=== PATIENT | male | born 1980 | race Two or more races ===

== ENCOUNTER 2018-06-17 20:13 | Inpatient (IN) | payer SELFPAY ==
[~2018-06-17] VITALS: Ht 177.8 cm; Wt 105.7 kg
--- NOTE | 2018-06-17 21:07 | PHYS DOC ---
Past Medical History Past Medical History: No Pertinent History Past Surgical History: No Surgical History Alcohol Use: Occasionally Drug Use: None Adult General Chief Complaint Chief Complaint: NAUSEA/VOMITING/DIARRHA HPI HPI Patient is a 37 year old male who presents with vomiting, diarrhea, chills, dizziness, headache 2 days. Patient hasn't ate or drank in over 24 hours. He denies a cough, shortness of air, chest pain, LOC, numbness, tingling, any weaknesses. Patient states he does have body aches and headache. Rates pain a 10 out of 10. He took Pepto-Bismol this morning and ibuprofen last at 6 PM. Skin is pink warm and dry. His abdomen is soft and tender in the epigastric and in the lower abdomen. Patient denies any urinary symptoms. Patient denies any blood in his vomit or his stool. Patient states he has not been around any dialysis and sick. Patient's heart rate is 120, 147/71, 24 respirations, 96% on room air. Review of Systems Review of Systems Constitutional: Fever or chills [] Eyes: Denies change in visual acuity, redness, or eye pain [] HENT: Denies nasal congestion or sore throat [] Respiratory: Denies cough or shortness of breath [] Cardiovascular: No additional information not addressed in HPI [] GI: Abdominal cramping pain, nausea, vomiting. Denies bloody stools. Diarrhea [] : Denies dysuria or hematuria [] Musculoskeletal: Generalized body aches. Denies back pain or joint pain [] Integument: Denies rash or skin lesions [] Neurologic: Headache and dizziness. Denies focal weakness or sensory changes [] Endocrine: Denies polyuria or polydipsia [] All other systems were reviewed and found to be within normal limits, except as documented in this note. Current Medications Current Medications Current Medications Medications (Trade) Dose Ordered Sig/Bebeto Start Time Stop Time Status Last Admin Dose Admin Acetaminophen (Tylenol) 650 mg PRN Q4HRS PRN 06/17/18 22:30 06/18/18 22:29 Famotidine (Pepcid Vial) 20 mg 1X ONCE 06/17/18 21:30 06/17/18 21:31 DC 06/17/18 21:47 20 MG Fentanyl Citrate (Fentanyl 2ml Vial) 50 mcg PRN Q2HR PRN 06/17/18 22:30 06/18/18 22:29 Info (CONTRAST GIVEN -- Rx MONITORING) 1 each PRN DAILY PRN 06/17/18 21:30 06/19/18 21:29 Iohexol (Omnipaque 300 Mg/ml) 75 ml 1X ONCE 06/17/18 22:00 06/17/18 22:01 DC 06/17/18 21:54 60 ML Ketorolac Tromethamine (Toradol 30mg Vial) 30 mg 1X ONCE 06/17/18 21:30 06/17/18 21:31 DC 06/17/18 21:46 30 MG Ondansetron HCl (Zofran) 4 mg PRN Q8HRS PRN 06/17/18 22:30 06/18/18 22:29 Sodium Chloride 1,000 ml @ 80 mls/hr [id number] 06/17/18 23:00 06/18/18 22:59 Allergies Allergies Allergies Coded Allergies Type Severity Reaction Last Updated Verified No Known Drug Allergies 06/17/18 No Physical Exam Physical Exam Constitutional: Well developed, well nourished, no acute distress, non-toxic appearance. [] HENT: Normocephalic, atraumatic, bilateral external ears normal, oropharynx moist, no oral exudates, nose normal. [] Eyes: PERRLA, EOMI, conjunctiva normal, no discharge. [] Neck: Normal range of motion, no tenderness, supple, no stridor. [] Cardiovascular: Heart rate regular rhythm, Tachy, no murmur [] Lungs & Thorax: Bilateral breath sounds clear to auscultation [] Abdomen: Bowel sounds normal, soft, Mid epigastric and low mid abdomen tenderness, no masses, no pulsatile masses. [] Skin: Warm, dry, no erythema, no rash. [] Back: No tenderness, no CVA tenderness. [] Extremities: No tenderness, no cyanosis, no clubbing, ROM intact, no edema. [] Neurologic: Alert and oriented X 3, normal motor function, normal sensory function, no focal deficits noted. [] Psychologic: Affect normal, judgement normal, mood normal. [] Current Patient Data Vital Signs Vital Signs Date Time Temp Pulse Resp B/P (MAP) Pulse Ox O2 Delivery O2 Flow Rate FiO2 06/17/18 21:00 103 18 154/77 (102) 96 Room Air 06/17/18 20:31 98.6 98.6 Lab Values Laboratory Tests Test 06/17/18 21:05 06/17/18 21:15 White Blood Count 20.1 x10^3/uL (4.0-11.0) H Red Blood Count 5.64 x10^6/uL (4.30-5.70) Hemoglobin 17.0 g/dL (13.0-17.5) Hematocrit 48.8 % (39.0-53.0) Mean Corpuscular Volume 87 fL (79-100) Mean Corpuscular Hemoglobin 30 pg (25-35) Mean Corpuscular Hemoglobin Concent 35 g/dL (31-37) Red Cell Distribution Width 14.2 % (11.5-14.5) Platelet Count 253 x10^3/uL (140-400) Neutrophils (%) (Auto) 93 % (31-73) H Lymphocytes (%) (Auto) 2 % (24-48) L Monocytes (%) (Auto) 4 % (0-9) Eosinophils (%) (Auto) 0 % (0-3) Basophils (%) (Auto) 1 % (0-3) Neutrophils # (Auto) 18.7 x10^3uL (1.8-7.7) H Lymphocytes # (Auto) 0.4 x10^3/uL (1.0-4.8) L Monocytes # (Auto) 0.8 x10^3/uL (0.0-1.1) Eosinophils # (Auto) 0.0 x10^3/uL (0.0-0.7) Basophils # (Auto) 0.1 x10^3/uL (0.0-0.2) Segmented Neutrophils % 62 % (35-66) Band Neutrophils % 28 % (0-9) H Lymphocytes % 5 % (24-48) L Atypical Lymphocytes % (Manual) 1 % (0-0) H Monocytes % 3 % (0-10) Basophils % 1 % (0-3) Platelet Estimate Adequate (ADEQUATE) Sodium Level 137 mmol/L (136-145) Potassium Level 3.8 mmol/L (3.5-5.1) Chloride Level 98 mmol/L (98-107) Carbon Dioxide Level 24 mmol/L (21-32) Anion Gap 15 (6-14) H Blood Urea Nitrogen 18 mg/dL (8-26) Creatinine 1.5 mg/dL (0.7-1.3) H Estimated GFR (Cockcroft-Gault) 52.1 BUN/Creatinine Ratio 12 (6-20) Glucose Level 153 mg/dL (70-99) H Calcium Level 9.4 mg/dL (8.5-10.1) Total Bilirubin 1.1 mg/dL (0.2-1.0) H Aspartate Amino Transferase (AST) 21 U/L (15-37) Alanine Aminotransferase (ALT) 45 U/L (16-63) Alkaline Phosphatase 77 U/L (46-116) Total Protein 9.0 g/dL (6.4-8.2) H Albumin 4.3 g/dL (3.4-5.0) Albumin/Globulin Ratio 0.9 (1.0-1.7) L Lipase 112 U/L (73-393) Urine Collection Type Unknown Urine Color Debo Urine Clarity Clear Urine pH 5.0 Urine Specific [place] >=1.030 Urine Protein 30 mg/dL (NEG-TRACE) Urine Glucose (UA) Negative mg/dL (NEG) Urine Ketones (Stick) Trace mg/dL (NEG) Urine Blood Moderate (NEG) Urine Nitrite Negative (NEG) Urine Bilirubin Negative (NEG) Urine Urobilinogen Dipstick 0.2 mg/dL (0.2 mg/dL) Urine Leukocyte Esterase Negative (NEG) Urine RBC Occ /HPF (0-2) Urine WBC Occ /HPF (0-4) Urine Squamous Epithelial Cells Occ /LPF Urine Bacteria 0 /HPF (0-FEW) Urine Hyaline Casts Few /HPF Urine Mucus Marked /LPF Urine Opiates Screen Neg (NEG) Urine Methadone Screen Neg (NEG) Urine Barbiturates Neg (NEG) Urine Phencyclidine Screen Neg (NEG) Urine Amphetamine/Methamphetamine Neg (NEG) Urine Benzodiazepines Screen Neg (NEG) Urine Cocaine Screen Neg (NEG) Urine Cannabinoids Screen Neg (NEG) Urine Ethyl Alcohol Neg (NEG) Influenza Type A Antigen Negative (NEGATIVE) Influenza Type B Antigen Negative (NEGATIVE) Laboratory Tests 06/17/18 21:05 Laboratory Tests 06/17/18 21:05 EKG EKG [] Radiology/Procedures Radiology/Procedures CT ABD PELV Impressions: [facility] [address] [place] [address] IMAGING REPORT Signed PATIENT: NICOLE MENDIETA ACCOUNT: [id number] : 1980 LOCATION: ER AGE: 37 SEX: M EXAM STATUS: REG ER ORD. PHYSICIAN: RAFAEL SIDDIQUI APRN REASON: abdominal pain, diarrhea PROCEDURE: CT ABD PELV W/ IV CONTRST ONLY CT scan of the abdomen and pelvis with contrast 06/17/2018 CLINICAL HISTORY: Abdominal pain and diarrhea. TECHNIQUE: After the intravenous administration of 60 cc of Omnipaque 300, contiguous, 5 mm axial sections were obtained through the abdomen and pelvis. One or more of the following individualized dose reduction techniques were utilized for this study: 1. Automated exposure control. 2. Adjustment of the mA and/or kV according to patient size. 3. Use of iterative reconstruction technique. FINDINGS: Images through the lung bases demonstrate minimal dependent subsegmental atelectasis bilaterally. The liver parenchyma has a decreased attenuation consistent with mild fatty infiltration. The spleen, pancreas, adrenal glands and kidneys are within normal limits. The abdominal aorta tapers normally. The gallbladder is well-distended. No free fluid or free air is seen within the abdomen. There is no evidence of bowel obstruction. The appendix is well-visualized and is within normal limits. Images through pelvis demonstrate the urinary bladder to be contracted. No free fluid is seen. Punctate calcification is seen within the left pelvis consistent with a phlebolith. Minimal S-shaped curvature of the thoracolumbar spine is seen. IMPRESSION: No acute abnormality is seen. Electronically signed by: Amari Garcia MD (06/17/2018 9:59 PM) [facility] DICTATED and SIGNED BY: AMARI GARCIA MD DATE: 06/17/180 Course & Med Decision Making Course & Med Decision Making Patient is a 37 year old male who presents with vomiting, diarrhea, chills, dizziness, headache 2 days. Patient hasn't ate or drank in over 24 hours. He denies a cough, shortness of air, chest pain, LOC, numbness, tingling, any weaknesses. Patient states he does have body aches and headache. Rates pain a 10 out of 10. He took Pepto-Bismol this morning and ibuprofen last at 6 PM. Skin is pink warm and dry. His abdomen is soft and tender in the epigastric and in the lower abdomen. Patient denies any urinary symptoms. Patient denies any blood in his vomit or his stool. Patient states he has not been around any dialysis and sick. Patient's heart rate is 120, 147/71, 24 respirations, 96% on room air. Clear to auscultation in all lobes. Heart rate is irregular and without murmur. Patient has no swelling in his extremities. He has no rashes or lesions. PERRLA. Neurologically intact. Alert and oriented. Patient states he has no known drug allergies, takes no medications daily, has no medical history , and has never had surgery. Patient denies any back pain or CVA tenderness. Patient is stable and in no distress. Patient has a white count of 20 and a left shift. Patient's urine is without infection. His CT abdomen pelvis shows no acute findings. Flu is negative. I have ordered another bolus of normal saline, blood cultures, lactic acid, Pro calcitonin. Patient does meet Sirs criteria. Patient will be admitted for Sirs. Patient's heart rate is now down to 103, 1 5477, 18 respirations, 96% on room air. 2234: Spoken to Dr. Murdock on the patient is admitted. Dr. Murdock had me order a dose of Flagyl and Cipro for the patient. Patient is stable and in no distress. Dragon Disclaimer Dragon Disclaimer This electronic medical record was generated, in whole or in part, using a voice recognition dictation system. Departure Departure Impression: Primary Impression: SIRS (systemic inflammatory response syndrome) Disposition: ADMITTED INPATIENT Admitting Physician: Patricia Murdock Condition: STABLE Referrals: NO PCP (PCP) RAFAEL SIDDIQUI APRN Jun 17, 2018 21:07
[2018-06-17 21:14] LABS: BASO # 0.1 x10^3/uL (0.0-0.2); BASO % 1 % (0-3); EOS % 0 % (0-3); HEMATOCRIT 48.8 % (39.0-53.0); LYMPH # 0.4 x10^3/uL (1.0-4.8); LYMPH % 2 % (24-48); MEAN CORPUSCULAR HEMOGLOBIN 30 pg (25-35); MEAN CORPUSCULAR HGB CONC 35 g/dL (31-37); MEAN CORPUSCULAR VOLUME 87 fL (79-100); MONO # 0.8 x10^3/uL (0.0-1.1); MONO % 4 % (0-9); NEUT # 18.7 x10^3uL (1.8-7.7); NEUT % 93 % (31-73); PLATELET COUNT 253 x10^3/uL (140-400); RED BLOOD COUNT 5.64 x10^6/uL (4.30-5.70); RED CELL DISTRIBUTION WIDTH 14.2 % (11.5-14.5); WHITE BLOOD COUNT 20.1 x10^3/uL (4.0-11.0)
[2018-06-17 21:25] LABS: CALCIUM 9.4 mg/dL (8.5-10.1); CREATININE 1.5 mg/dL (0.7-1.3); GFR 52.1; POTASSIUM 3.8 mmol/L (3.5-5.1)
[2018-06-17 21:29] LABS: BILIRUBIN,URINE NEGATIVE (NEG); CLARITY,URINE CLEAR; COLOR,URINE AMBER; NITRITE,URINE NEGATIVE (NEG); PROTEIN,URINE 30 mg/dL (NEG-TRACE); UROBILINOGEN,URINE 0.2 mg/dL (0.2 mg/dL)
[2018-06-17] MEDS ORDERED: KETOROLAC 30 MG/ML VIAL. IV ONE (21:30)
[2018-06-17] MEDS ORDERED: CONTRAST GIVEN. MC PRN (21:30)
[2018-06-17] MEDS ORDERED: IV NORMAL SALINE 1000ML BAG 1,000 ML IV ONE ×2 (21:30→22:30)
[2018-06-17] MEDS ORDERED: ONDANSETRON PF 4 MG/2 ML VIAL. IV ONE (21:30)
[2018-06-17] MEDS ORDERED: FAMOTIDINE 20 MG/2 ML VIAL IVP ONE (21:30)
[2018-06-17 21:31] LABS: ALBUMIN 4.3 g/dL (3.4-5.0); ALBUMIN/GLOBULIN RATIO 0.9 (1.0-1.7); TOTAL BILIRUBIN 1.1 mg/dL (0.2-1.0)
[2018-06-17 21:33] LABS: BACTERIA,URINE 0 /HPF (0-FEW); HYALINE CASTS, URINE FEW /HPF; RBC,URINE OCC /HPF (0-2); SQUAMOUS EPITHELIAL CELL,UR OCC /LPF; WBC,URINE OCC /HPF (0-4)
[2018-06-17 21:41] LABS: BARBITURATES NEG (NEG); BENZODIAZEPINES NEG (NEG); CANNABINOIDS NEG (NEG); COCAINE NEG (NEG); METHADONE NEG (NEG); OPIATES NEG (NEG); PHENCYCLIDINE NEG (NEG)
[2018-06-17 21:42] LABS: AMPHETAMINE/METHAMPHETAMINE NEG (NEG)
[2018-06-17 21:44] LABS: % ATYL 1 % (0-0); % BANDS 28 % (0-9); % BASOS 1 % (0-3); % LYMPHS 5 % (24-48); % MONOS 3 % (0-10); % SEGS 62 % (35-66); PLT ESTIMATE ADEQUATE (ADEQUATE)
[2018-06-17 21:58] LABS: INFLUENZA A PATIENT NEGATIVE (NEGATIVE); INFLUENZA B PATIENT NEGATIVE (NEGATIVE)
[2018-06-17] MEDS ORDERED: IOHEXOL 300 MG/ML 100ML VIAL. IV ONE (22:00)
--- NOTE | 2018-06-17 22:02 | RAD ---
CT scan of the abdomen and pelvis with contrast 06/17/2018 CLINICAL HISTORY: Abdominal pain and diarrhea. TECHNIQUE: After the intravenous administration of 60 cc of Omnipaque 300, contiguous, 5 mm axial sections were obtained through the abdomen and pelvis. One or more of the following individualized dose reduction techniques were utilized for this study: 1. Automated exposure control. 2. Adjustment of the mA and/or kV according to patient size. 3. Use of iterative reconstruction technique. FINDINGS: Images through the lung bases demonstrate minimal dependent subsegmental atelectasis bilaterally. The liver parenchyma has a decreased attenuation consistent with mild fatty infiltration. The spleen, pancreas, adrenal glands and kidneys are within normal limits. The abdominal aorta tapers normally. The gallbladder is well-distended. No free fluid or free air is seen within the abdomen. There is no evidence of bowel obstruction. The appendix is well-visualized and is within normal limits. Images through pelvis demonstrate the urinary bladder to be contracted. No free fluid is seen. Punctate calcification is seen within the left pelvis consistent with a phlebolith. Minimal S-shaped curvature of the thoracolumbar spine is seen. IMPRESSION: No acute abnormality is seen. Electronically signed by: Amari Garcia MD (06/17/2018 9:59 PM) [facility]
[2018-06-17] MEDS ORDERED: fentaNYL PF VIAL 100 MCG/2 ML VIAL IV PRN (22:30)
[2018-06-17] MEDS ORDERED: ONDANSETRON PF 4 MG/2 ML VIAL. IV PRN (22:30)
[2018-06-17] MEDS ORDERED: CIPROFLOXACIN 400MG PREMIX 200 ML IV ONE (23:00)
[2018-06-17 23:55] VITALS: BP 123/72
[2018-06-18] MEDS: IV NORMAL SALINE 1000ML BAG 1,000 ML IV SCH ×4 (00:11→20:41)
[2018-06-18] MEDS ORDERED: [UNRECOGNIZED DRUG - REMARK] (00:17)
--- NOTE | 2018-06-18 02:49 | RAD ---
CHEST PA LATERAL Technique: PA and lateral views of the chest were obtained. Clinical History: fever, elevated WBC Comparison: None. Findings: The heart and pulmonary vasculature appear within normal limits. The lungs are clear. The pleural margins are clear. Impression: No acute chest process is seen. Electronically signed by: Gino Iglesias III, MD (06/18/2018 2:45 AM) [id number]
[2018-06-18 03:00] VITALS: BP 123/65
[2018-06-18 07:00] VITALS: BP 133/70
[2018-06-18] MEDS: ACETAMINOPHEN 325 MG TABLET. PO PRN ×2 (08:19→15:24)
[2018-06-18 11:00] VITALS: BP 120/70
[2018-06-18] MEDS: PIPERACILLIN/TAZOBACTAM 3.375 GM in IV NORMAL SALINE 50ML 50 ML IV SCH ×2 (12:49→17:37)
[2018-06-18 13:02] LABS: FECAL OB PT POSITIVE (NEG)
[2018-06-18 15:00] VITALS: BP 142/83
[2018-06-18] MEDS ORDERED: DOCUSATE SODIUM 100 MG CAPSULE. PO PRN (15:45)
[2018-06-18] MEDS ORDERED: traMADol 50 MG TABLET PO PRN (15:45)
[2018-06-18] MEDS ORDERED: MORPHINE SULFATE 2 MG/ML VIAL. IV PRN (15:45)
[2018-06-18] MEDS ORDERED: ONDANSETRON PF 4 MG/2 ML VIAL. IV PRN (15:45)
[2018-06-18] MEDS ORDERED: ACETAMINOPHEN 325 MG TABLET. PO PRN (15:45)
--- NOTE | 2018-06-18 15:48 | PDOC1 ---
History and Physical Date of Admission Date of Admission 06/18/18 Identification/Chief Complaint Chief Complaint N/V, diarrhea Source Source: Chart review, Patient History of Present Illness History of Present Illness Patient is a 37 year old male who presents with vomiting, diarrhea x2 days. Pt speaks persian, little Upper Sorbian. He denies sick contact, recent travel history. Has N/V and watery diarrhea 15times x2ds. also has abd pain, diffuse, moderate, dull pain. whole body muscle pain. no cough, or sob. also had headache. has T 102.[address] ABD neg. wbc 20. Past Medical History Past Medical History none Past Surgical History Past Surgical History: No pertinent history Family History Family History: Hypertension Social History Smoke: No ALCOHOL: none Drugs: None Current Problem List Problem List Problems Medical Problems: (1) SIRS (systemic inflammatory response syndrome) Status: Acute Current Medications Current Medications Current Medications Medications (Trade) Dose Ordered Sig/Bebeto Start Time Stop Time Status Last Admin Dose Admin Acetaminophen (Tylenol) 650 mg PRN Q4HRS PRN 06/17/18 22:30 06/18/18 22:29 06/18/18 15:24 650 MG Ciprofloxacin/ Dextrose 200 ml @ 200 mls/hr 1X ONCE 06/17/18 23:00 06/18/18 12:07 DC 06/17/18 23:15 200 MLS/HR Famotidine (Pepcid Vial) 20 mg 1X ONCE 06/17/18 21:30 06/17/18 21:31 DC 06/17/18 21:47 20 MG Fentanyl Citrate (Fentanyl 2ml Vial) 50 mcg PRN Q2HR PRN 06/17/18 22:30 06/18/18 22:29 06/18/18 00:30 50 MCG Info (CONTRAST GIVEN -- Rx MONITORING) 1 each PRN DAILY PRN 06/17/18 21:30 06/19/18 21:29 Iohexol (Omnipaque 300 Mg/ml) 75 ml 1X ONCE 06/17/18 22:00 06/17/18 22:01 DC 06/17/18 21:54 60 ML Ketorolac Tromethamine (Toradol 30mg Vial) 30 mg 1X ONCE 06/17/18 21:30 06/17/18 21:31 DC 06/17/18 21:46 30 MG Metronidazole 100 ml @ 100 mls/hr 1X ONCE 06/17/18 23:00 06/18/18 12:07 DC 06/18/18 00:21 100 MLS/HR Ondansetron HCl (Zofran) 4 mg PRN Q8HRS PRN 06/17/18 22:30 06/18/18 22:29 06/18/18 12:48 4 MG Piperacillin Sod/ Tazobactam Sod 3.375 gm/Sodium Chloride 50 ml @ 100 mls/hr Q6HRS 06/18/18 12:30 06/18/18 12:49 100 MLS/HR Sodium Chloride 1,000 ml @ 80 mls/hr [id number] 06/17/18 23:00 06/18/18 22:59 06/18/18 15:24 80 MLS/HR Allergies Allergies Allergies Coded Allergies Type Severity Reaction Last Updated Verified No Known Drug Allergies 06/17/18 No ROS Review of System CONSTITUTIONAL: No fever or chills EYES: No recent changes SKIN: No rash or itching CARDIOVASCULAR: No chest pain, syncope, palpitations, or edema RESPIRATORY: No SOB or cough GASTROINTESTINAL: No nausea, vomiting or abdominal pain NEUROLOGICAL: No headaches or weakness ENDOCRINE: No cold or heat intolerance GENITOURINARY: No urgency or frequency of urination MUSCULOSKELETAL: No back pain or joint pain LYMPHATICS: No enlarged lymph nodes PSYCHIATRIC: No anxiety or depression Physical Exam Physical Exam GEN.: No apparent distress. Alert and oriented. HEENT: Head is normocephalic, atraumatic NECK: Supple. LUNGS: Clear to auscultation. HEART: RRR, S1, S2 present. Peripheral pulses intact ABDOMEN: Soft, Positive bowel sounds. mildly distended. diffuse moderate abd tenderness. EXTREMITIES: Without any cyanosis. NEUROLOGIC: Normal speech, normal tone PSYCHIATRIC: Normal affect, normal mood. SKIN: No ulcerations Vitals Vitals Vital Signs Date Time Temp Pulse Resp B/P (MAP) Pulse Ox O2 Delivery O2 Flow Rate FiO2 06/18/18 11:00 99.4 91 20 120/70 (87) 94 Room Air 99.4 Labs Labs Laboratory Tests Test 06/17/18 21:05 06/17/18 21:15 06/17/18 22:27 06/18/18 02:30 White Blood Count 20.1 x10^3/uL (4.0-11.0) Red Blood Count 5.64 x10^6/uL (4.30-5.70) Hemoglobin 17.0 g/dL (13.0-17.5) Hematocrit 48.8 % (39.0-53.0) Mean Corpuscular Volume 87 fL (79-100) Mean Corpuscular Hemoglobin 30 pg (25-35) Mean Corpuscular Hemoglobin Concent 35 g/dL (31-37) Red Cell Distribution Width 14.2 % (11.5-14.5) Platelet Count 253 x10^3/uL (140-400) Neutrophils (%) (Auto) 93 % (31-73) Lymphocytes (%) (Auto) 2 % (24-48) Monocytes (%) (Auto) 4 % (0-9) Eosinophils (%) (Auto) 0 % (0-3) Basophils (%) (Auto) 1 % (0-3) Neutrophils # (Auto) 18.7 x10^3uL (1.8-7.7) Lymphocytes # (Auto) 0.4 x10^3/uL (1.0-4.8) Monocytes # (Auto) 0.8 x10^3/uL (0.0-1.1) Eosinophils # (Auto) 0.0 x10^3/uL (0.0-0.7) Basophils # (Auto) 0.1 x10^3/uL (0.0-0.2) Segmented Neutrophils % 62 % (35-66) Band Neutrophils % 28 % (0-9) Lymphocytes % 5 % (24-48) Atypical Lymphocytes % (Manual) 1 % (0-0) Monocytes % 3 % (0-10) Basophils % 1 % (0-3) Platelet Estimate Adequate (ADEQUATE) Sodium Level 137 mmol/L (136-145) Potassium Level 3.8 mmol/L (3.5-5.1) Chloride Level 98 mmol/L (98-107) Carbon Dioxide Level 24 mmol/L (21-32) Anion Gap 15 (6-14) Blood Urea Nitrogen 18 mg/dL (8-26) Creatinine 1.5 mg/dL (0.7-1.3) Estimated GFR (Cockcroft-Gault) 52.1 BUN/Creatinine Ratio 12 (6-20) Glucose Level 153 mg/dL (70-99) Calcium Level 9.4 mg/dL (8.5-10.1) Total Bilirubin 1.1 mg/dL (0.2-1.0) Aspartate Amino Transf (AST/SGOT) 21 U/L (15-37) Alanine Aminotransferase (ALT/SGPT) 45 U/L (16-63) Alkaline Phosphatase 77 U/L (46-116) Total Protein 9.0 g/dL (6.4-8.2) Albumin 4.3 g/dL (3.4-5.0) Albumin/Globulin Ratio 0.9 (1.0-1.7) Lipase 112 U/L (73-393) Procalcitonin 1.12 ng/mL (0.00-0.10) Urine Collection Type Unknown Urine Color Debo Urine Clarity Clear Urine pH 5.0 Urine Specific [place] >=1.030 Urine Protein 30 mg/dL (NEG-TRACE) Urine Glucose (UA) Negative mg/dL (NEG) Urine Ketones (Stick) Trace mg/dL (NEG) Urine Blood Moderate (NEG) Urine Nitrite Negative (NEG) Urine Bilirubin Negative (NEG) Urine Urobilinogen Dipstick 0.2 mg/dL (0.2 mg/dL) Urine Leukocyte Esterase Negative (NEG) Urine RBC Occ /HPF (0-2) Urine WBC Occ /HPF (0-4) Urine Squamous Epithelial Cells Occ /LPF Urine Bacteria 0 /HPF (0-FEW) Urine Hyaline Casts Few /HPF Urine Mucus Marked /LPF Urine Opiates Screen Neg (NEG) Urine Methadone Screen Neg (NEG) Urine Barbiturates Neg (NEG) Urine Phencyclidine Screen Neg (NEG) Urine Amphetamine/Methamphetamine Neg (NEG) Urine Benzodiazepines Screen Neg (NEG) Urine Cocaine Screen Neg (NEG) Urine Cannabinoids Screen Neg (NEG) Urine Ethyl Alcohol Neg (NEG) Influenza Type A Antigen Negative (NEGATIVE) Influenza Type B Antigen Negative (NEGATIVE) Lactic Acid Level 3.4 mmol/L (0.4-2.0) 2.0 mmol/L (0.4-2.0) Test 06/18/18 12:24 Stool Occult Blood Positive (NEG) Laboratory Tests Test 06/17/18 21:05 06/17/18 21:15 06/17/18 22:27 06/18/18 02:30 White Blood Count 20.1 x10^3/uL (4.0-11.0) Red Blood Count 5.64 x10^6/uL (4.30-5.70) Hemoglobin 17.0 g/dL (13.0-17.5) Hematocrit 48.8 % (39.0-53.0) Mean Corpuscular Volume 87 fL (79-100) Mean Corpuscular Hemoglobin 30 pg (25-35) Mean Corpuscular Hemoglobin Concent 35 g/dL (31-37) Red Cell Distribution Width 14.2 % (11.5-14.5) Platelet Count 253 x10^3/uL (140-400) Neutrophils (%) (Auto) 93 % (31-73) Lymphocytes (%) (Auto) 2 % (24-48) Monocytes (%) (Auto) 4 % (0-9) Eosinophils (%) (Auto) 0 % (0-3) Basophils (%) (Auto) 1 % (0-3) Neutrophils # (Auto) 18.7 x10^3uL (1.8-7.7) Lymphocytes # (Auto) 0.4 x10^3/uL (1.0-4.8) Monocytes # (Auto) 0.8 x10^3/uL (0.0-1.1) Eosinophils # (Auto) 0.0 x10^3/uL (0.0-0.7) Basophils # (Auto) 0.1 x10^3/uL (0.0-0.2) Segmented Neutrophils % 62 % (35-66) Band Neutrophils % 28 % (0-9) Lymphocytes % 5 % (24-48) Atypical Lymphocytes % (Manual) 1 % (0-0) Monocytes % 3 % (0-10) Basophils % 1 % (0-3) Platelet Estimate Adequate (ADEQUATE) Sodium Level 137 mmol/L (136-145) Potassium Level 3.8 mmol/L (3.5-5.1) Chloride Level 98 mmol/L (98-107) Carbon Dioxide Level 24 mmol/L (21-32) Anion Gap 15 (6-14) Blood Urea Nitrogen 18 mg/dL (8-26) Creatinine 1.5 mg/dL (0.7-1.3) Estimated GFR (Cockcroft-Gault) 52.1 BUN/Creatinine Ratio 12 (6-20) Glucose Level 153 mg/dL (70-99) Calcium Level 9.4 mg/dL (8.5-10.1) Total Bilirubin 1.1 mg/dL (0.2-1.0) Aspartate Amino Transf (AST/SGOT) 21 U/L (15-37) Alanine Aminotransferase (ALT/SGPT) 45 U/L (16-63) Alkaline Phosphatase 77 U/L (46-116) Total Protein 9.0 g/dL (6.4-8.2) Albumin 4.3 g/dL (3.4-5.0) Albumin/Globulin Ratio 0.9 (1.0-1.7) Lipase 112 U/L (73-393) Procalcitonin 1.12 ng/mL (0.00-0.10) Urine Collection Type Unknown Urine Color Debo Urine Clarity Clear Urine pH 5.0 Urine Specific [place] >=1.030 Urine Protein 30 mg/dL (NEG-TRACE) Urine Glucose (UA) Negative mg/dL (NEG) Urine Ketones (Stick) Trace mg/dL (NEG) Urine Blood Moderate (NEG) Urine Nitrite Negative (NEG) Urine Bilirubin Negative (NEG) Urine Urobilinogen Dipstick 0.2 mg/dL (0.2 mg/dL) Urine Leukocyte Esterase Negative (NEG) Urine RBC Occ /HPF (0-2) Urine WBC Occ /HPF (0-4) Urine Squamous Epithelial Cells Occ /LPF Urine Bacteria 0 /HPF (0-FEW) Urine Hyaline Casts Few /HPF Urine Mucus Marked /LPF Urine Opiates Screen Neg (NEG) Urine Methadone Screen Neg (NEG) Urine Barbiturates Neg (NEG) Urine Phencyclidine Screen Neg (NEG) Urine Amphetamine/Methamphetamine Neg (NEG) Urine Benzodiazepines Screen Neg (NEG) Urine Cocaine Screen Neg (NEG) Urine Cannabinoids Screen Neg (NEG) Urine Ethyl Alcohol Neg (NEG) Influenza Type A Antigen Negative (NEGATIVE) Influenza Type B Antigen Negative (NEGATIVE) Lactic Acid Level 3.4 mmol/L (0.4-2.0) 2.0 mmol/L (0.4-2.0) Test 06/18/18 12:24 Stool Occult Blood Positive (NEG) VTE Prophylaxis Ordered VTE Prophylaxis Devices: Yes VTE Pharmacological Prophylaxi: Yes Assessment/Plan Assessment/Plan abd pain, N/V diarrhea, 2/2 possible viral gastroenteritis fever SIRS leukocytosis plan: CT abd neg. flu neg ID consult, add zosyn bcx pending check stool cx ivf npo for now pain control dvt ppx gi ppx SUZIE SMITH MD Jun 18, 2018 15:48
[2018-06-18 19:00] VITALS: BP 142/88
[2018-06-18] MEDS: FAMOTIDINE 20 MG/2 ML VIAL IVP SCH (20:41)
[2018-06-18] MEDS: HEPARIN for SUB-Q USE 5,000 UNIT/ML VIAL. SQ SCH (20:48)
[2018-06-18 23:00] VITALS: BP 136/79
--- NOTE | 2018-06-18 23:28 | CONS ---
DATE OF CONSULTATION: 06/18/2018 REFERRING PHYSICIAN: Dr. Walters. REASON FOR CONSULTATION: Fever and diarrhea. HISTORY OF PRESENT ILLNESS: A 37-year-old male with a history of no medical problems admitted through ER with complaints of nausea, vomiting, diarrhea, fevers, chills and dizziness for 2 days. The patient denies any sick contact. He started getting weaker. He started having generalized aches and pains. He took some Pepto-Bismol and ibuprofen that helped, but then continued to have fever. He denies any sick contact. He has been in the [place] for 5 months. 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 Denies any new food intake. Denies eating any uncooked meals or meat. Denies drinking any unpasteurized milk. Denies any history of sickness like this in the past. Denies any blood in the stool or vomitus. Denies any melena or hematochezia. Denies any rectal bleeding. Upon arrival, he was tachycardic, febrile and was started on empiric Cipro and Flagyl. A CT of the abdomen did not show any acute changes. Chest x-ray was negative. He was admitted on the medical floor and Infectious Disease consult has been requested for further antibiotic management. REVIEW OF SYSTEMS: Fevers, body ache, nausea, vomiting and diarrhea. No bloody stool. No rash. No joint pain. No symptoms. No visual disturbances. No ear pain. No oral sores. CURRENT MEDICATIONS: IV Cipro and Flagyl. Other medications reviewed in medication list. ALLERGIES: No known drug allergies. SOCIAL HISTORY: He denies smoking, ETOH or illicit drug use. Lives with his , has 2 children, aged 16 and 10 years, works in construction and has been in the [place] for 5 months. Denies any recent travel. Denies any recreational activity. Denies any pets. PHYSICAL EXAMINATION: VITAL SIGNS: Temperature 102.6, pulse 109, blood pressure 133/70, respiration 22 and oxygen saturation 93% on room air. GENERAL: Alert and oriented x 3, Bengali speaking male understands and talks in Palestinian, in no acute distress, lying comfortably in bed and nontoxic appearing. HEENT: Normocephalic and atraumatic. Anicteric. No thrush. Oral mucosa is moist. NECK: Supple. No JVD. LUNGS: Clear bilaterally. No wheezing. HEART: S1 and S2. No gallops, murmurs or rubs. ABDOMEN: Soft and nontender. Mild tenderness in the mid quadrant. No rebound and no guarding. EXTREMITIES: No edema and no cyanosis. DERM: Warm, dry and no generalized rash. CENTRAL NERVOUS SYSTEM: Alert and oriented x 3. Grossly nonfocal. PSYCHIATRIC: Appropriate mood and affect. LABORATORY DATA: WBC 20.1, hemoglobin 17.0, hematocrit 48.8 and platelets 253, neutrophils 93, lymphocytes 2 and bands 28. Sodium 137, potassium 3.8, chloride 98, bicarbonate 24, BUN 18, creatinine 1.5 and glucose 153. Lactate 3.4 and now 2.0. Procalcitonin 1.12. Total bilirubin 1.1. Total protein 9.0 and albumin 4.3. Alkaline phosphatase 77. UDS negative. Urine negative. Influenza screen negative. CT abdomen shows no acute abnormality. Chest x-ray, no acute process is seen. C. diff is pending. IMPRESSION: 1. Systemic inflammatory response syndrome. 2. Leukocytosis.could be reactive 3. Lactic acidosis. 4. Nausea, vomiting, diarrhea, abdominal pain likely gastroenteritis with CT abdomen and pelvis shows no acute findings.Could be viral 5. Flu screen negative. 6. UA negative. 7. Chest x-ray negative. RECOMMENDATIONS: 1. Discontinue Cipro and Flagyl. 2. Start empiric Zosyn. 3. Follow up blood culture results. 4. Obtain C. diff, crypto Giardia antigen, ova and parasite, fecal wbc's and fecal cultures.fecal occult blood 5. Follow up culture and susceptibility results. 6. Continue supportive care. 7. HIV AB pt gave verbal consent d/w Niece D?W RN Thank you, Dr. Walters for consulting Infectious Disease to participate in this patient's care. If you have any questions, do not hesitate to contact me. DEANN SWANSON MD DR: ERAN/kellie JOB#: [id number] / [id number] DAMIAN
[2018-06-19] MEDS: PIPERACILLIN/TAZOBACTAM 3.375 GM in IV NORMAL SALINE 50ML 50 ML IV SCH ×3 (00:15→12:00)
[2018-06-19] MEDS: IV NORMAL SALINE 1000ML BAG 1,000 ML IV SCH ×3 (00:19→20:57)
[2018-06-19 03:15] VITALS: BP 141/86
[2018-06-19 04:45] LABS: BASO % 0 % (0-3); EOS % 0 % (0-3); HEMOGLOBIN 14.7 g/dL (13.0-17.5); LYMPH # 0.6 x10^3/uL (1.0-4.8); LYMPH % 14 % (24-48); MEAN CORPUSCULAR HEMOGLOBIN 30 pg (25-35); MEAN CORPUSCULAR HGB CONC 35 g/dL (31-37); MEAN CORPUSCULAR VOLUME 86 fL (79-100); MONO # 0.5 x10^3/uL (0.0-1.1); MONO % 12 % (0-9); NEUT # 3.2 x10^3uL (1.8-7.7); NEUT % 74 % (31-73); PLATELET COUNT 179 x10^3/uL (140-400); RED BLOOD COUNT 4.89 x10^6/uL (4.30-5.70); RED CELL DISTRIBUTION WIDTH 14.1 % (11.5-14.5); WHITE BLOOD COUNT 4.3 x10^3/uL (4.0-11.0)
[2018-06-19 04:55] LABS: CALCIUM 8.4 mg/dL (8.5-10.1); GFR 83.2; POTASSIUM 3.2 mmol/L (3.5-5.1)
[2018-06-19] MEDS: HEPARIN for SUB-Q USE 5,000 UNIT/ML VIAL. SQ SCH ×3 (06:07→22:21)
[2018-06-19 07:35] VITALS: BP 141/86
--- NOTE | 2018-06-19 10:43 | PDOC ---
Infectious Disease Note Subjective: Subjective Pt feels better this am has diarrhea but frequency improving, goes every 3hrs instead of every hr, watery no n/c/fc/sob/gu symptoms ROS: ROS Negative except for above. Vital Signs: Vital Signs Vital Signs Date Time Temp Pulse Resp B/P (MAP) Pulse Ox O2 Delivery O2 Flow Rate FiO2 06/19/18 07:45 Room Air 06/19/18 07:35 97.7 86 18 141/86 (104) 96 97.7 Physical Exam: PHYSICAL EXAM GENERAL: Alert and oriented x 3, Palauan speaking male understands and talks in Wolof, in no acute distress, lying comfortably in bed and nontoxic appearing. HEENT: Normocephalic and atraumatic. Anicteric. No thrush. Oral mucosa is moist. NECK: Supple. No JVD. LUNGS: Clear bilaterally. No wheezing. HEART: S1 and S2. No gallops, murmurs or rubs. ABDOMEN: Soft and nontender. Mild tenderness in the mid quadrant. No rebound and no guarding. EXTREMITIES: No edema and no cyanosis. DERM: Warm, dry and no generalized rash. CENTRAL NERVOUS SYSTEM: Alert and oriented x 3. Grossly nonfocal. PSYCHIATRIC: Appropriate mood and affect. Medications: Inpatient Meds: Current Medications Medications (Trade) Dose Ordered Sig/Bebeto Start Time Stop Time Status Last Admin Dose Admin Acetaminophen (Tylenol) 650 mg PRN Q6HRS PRN 06/18/18 15:45 06/18/18 20:39 650 MG Ciprofloxacin/ Dextrose 200 ml @ 200 mls/hr 1X ONCE 06/17/18 23:00 06/18/18 12:07 DC 06/17/18 23:15 200 MLS/HR Docusate Sodium (Colace) 100 mg PRN DAILY PRN 06/18/18 15:45 Famotidine (Pepcid Vial) 20 mg QHS 06/18/18 21:00 06/18/18 20:41 20 MG Fentanyl Citrate (Fentanyl 2ml Vial) 50 mcg PRN Q2HR PRN 06/17/18 22:30 06/18/18 22:29 DC 06/18/18 00:30 50 MCG Heparin Sodium (Porcine) (Heparin Sodium) 5,000 unit Q8HRS 06/18/18 22:00 06/19/18 06:07 5,000 UNIT Info (CONTRAST GIVEN -- Rx MONITORING) 1 each PRN DAILY PRN 06/17/18 21:30 06/19/18 21:29 Iohexol (Omnipaque 300 Mg/ml) 75 ml 1X ONCE 06/17/18 22:00 06/17/18 22:01 DC 06/17/18 21:54 60 ML Ketorolac Tromethamine (Toradol 30mg Vial) 30 mg 1X ONCE 06/17/18 21:30 06/17/18 21:31 DC 06/17/18 21:46 30 MG Metronidazole 100 ml @ 100 mls/hr 1X ONCE 06/17/18 23:00 06/18/18 12:07 DC 06/18/18 00:21 100 MLS/HR Morphine Sulfate (Morphine Sulfate) 2 mg PRN Q2HR PRN 06/18/18 15:45 Ondansetron HCl (Zofran) 4 mg PRN Q6HRS PRN 06/18/18 15:45 Piperacillin Sod/ Tazobactam Sod 3.375 gm/Sodium Chloride 50 ml @ 100 mls/hr Q6HRS 06/18/18 12:30 06/19/18 06:04 100 MLS/HR Sodium Chloride 1,000 ml @ 125 mls/hr Q8H 06/18/18 15:45 06/19/18 10:14 125 MLS/HR Tramadol HCl (Ultram) 50 mg PRN Q6HRS PRN 06/18/18 15:45 Labs: Lab Laboratory Tests Test 06/18/18 12:24 06/19/18 04:00 Stool Occult Blood Positive (NEG) White Blood Count 4.3 x10^3/uL (4.0-11.0) Red Blood Count 4.89 x10^6/uL (4.30-5.70) Hemoglobin 14.7 g/dL (13.0-17.5) Hematocrit 42.0 % (39.0-53.0) Mean Corpuscular Volume 86 fL (79-100) Mean Corpuscular Hemoglobin 30 pg (25-35) Mean Corpuscular Hemoglobin Concent 35 g/dL (31-37) Red Cell Distribution Width 14.1 % (11.5-14.5) Platelet Count 179 x10^3/uL (140-400) Neutrophils (%) (Auto) 74 % (31-73) Lymphocytes (%) (Auto) 14 % (24-48) Monocytes (%) (Auto) 12 % (0-9) Eosinophils (%) (Auto) 0 % (0-3) Basophils (%) (Auto) 0 % (0-3) Neutrophils # (Auto) 3.2 x10^3uL (1.8-7.7) Lymphocytes # (Auto) 0.6 x10^3/uL (1.0-4.8) Monocytes # (Auto) 0.5 x10^3/uL (0.0-1.1) Eosinophils # (Auto) 0.0 x10^3/uL (0.0-0.7) Basophils # (Auto) 0.0 x10^3/uL (0.0-0.2) Sodium Level 136 mmol/L (136-145) Potassium Level 3.2 mmol/L (3.5-5.1) Chloride Level 101 mmol/L (98-107) Carbon Dioxide Level 26 mmol/L (21-32) Anion Gap 9 (6-14) Blood Urea Nitrogen 9 mg/dL (8-26) Creatinine 1.0 mg/dL (0.7-1.3) Estimated GFR (Cockcroft-Gault) 83.2 Glucose Level 144 mg/dL (70-99) Calcium Level 8.4 mg/dL (8.5-10.1) Micro flu screen neg c diff neg fob + hiv neg BC neg so far Objective: Assessment: 1. Fever, Systemic inflammatory response syndrome.improving,source GI 2. Leukocytosis.could be reactive 3. Lactic acidosis. 4. Nausea, vomiting, diarrhea, abdominal pain likely gastroenteritis with CT abdomen and pelvis shows no acute findings.could be viral, parasitic or bacterial 5.FOB positive Hematuria Plan: Plan of Care DC Zosyn. start cipro and flagyl Follow up blood culture results. fu crypto Giardia antigen, ova and parasite fecal cultures d/w DEANN SWANSON MD Jun 19, 2018 10:43
[2018-06-19 11:00] VITALS: BP 134/82
--- NOTE | 2018-06-19 11:05 | PDOC ---
PROGRESS NOTES History of Present Illness History of Present Illness Assessment/Plan Assessment/Plan abd pain, N/V diarrhea, 2/2 possible viral gastroenteritis fever SIRS leukocytosis plan: CT abd neg. flu neg ID consult, d/c zosyn bcx pending check stool cx ivf npo for now pain control dvt ppx gi ppx start cipro and flagyl Follow up blood culture crypto Giardia antigen, ova and parasite fecal cultures Vitals Vitals Vital Signs Date Time Temp Pulse Resp B/P (MAP) Pulse Ox O2 Delivery O2 Flow Rate FiO2 06/19/18 07:45 Room Air 06/19/18 07:35 97.7 86 18 141/86 (104) 96 97.7 Physical Exam Physical Exam GENERAL: Alert and oriented x 3, Albanian speaking male understands and talks in Mexican, in no acute distress, lying comfortably in bed and nontoxic appearing. HEENT: Normocephalic and atraumatic. Anicteric. No thrush. Oral mucosa is moist. NECK: Supple. No JVD. LUNGS: Clear bilaterally. No wheezing. HEART: S1 and S2. No gallops, murmurs or rubs. ABDOMEN: Soft and nontender. Mild tenderness in the mid quadrant. No rebound and no guarding. EXTREMITIES: No edema and no cyanosis. DERM: Warm, dry and no generalized rash. CENTRAL NERVOUS SYSTEM: Alert and oriented x 3. Grossly nonfocal. PSYCHIATRIC: Appropriate mood and affect. General: Alert, Oriented X3, Cooperative Heart: Regular rate Lungs: Clear Extremities: No cyanosis Labs LABS Laboratory Tests Test 06/18/18 12:24 06/19/18 04:00 Stool Occult Blood Positive (NEG) White Blood Count 4.3 x10^3/uL (4.0-11.0) Red Blood Count 4.89 x10^6/uL (4.30-5.70) Hemoglobin 14.7 g/dL (13.0-17.5) Hematocrit 42.0 % (39.0-53.0) Mean Corpuscular Volume 86 fL (79-100) Mean Corpuscular Hemoglobin 30 pg (25-35) Mean Corpuscular Hemoglobin Concent 35 g/dL (31-37) Red Cell Distribution Width 14.1 % (11.5-14.5) Platelet Count 179 x10^3/uL (140-400) Neutrophils (%) (Auto) 74 % (31-73) Lymphocytes (%) (Auto) 14 % (24-48) Monocytes (%) (Auto) 12 % (0-9) Eosinophils (%) (Auto) 0 % (0-3) Basophils (%) (Auto) 0 % (0-3) Neutrophils # (Auto) 3.2 x10^3uL (1.8-7.7) Lymphocytes # (Auto) 0.6 x10^3/uL (1.0-4.8) Monocytes # (Auto) 0.5 x10^3/uL (0.0-1.1) Eosinophils # (Auto) 0.0 x10^3/uL (0.0-0.7) Basophils # (Auto) 0.0 x10^3/uL (0.0-0.2) Sodium Level 136 mmol/L (136-145) Potassium Level 3.2 mmol/L (3.5-5.1) Chloride Level 101 mmol/L (98-107) Carbon Dioxide Level 26 mmol/L (21-32) Anion Gap 9 (6-14) Blood Urea Nitrogen 9 mg/dL (8-26) Creatinine 1.0 mg/dL (0.7-1.3) Estimated GFR (Cockcroft-Gault) 83.2 Glucose Level 144 mg/dL (70-99) Calcium Level 8.4 mg/dL (8.5-10.1) Assessment and Plan Assessmemt and Plan Problems Medical Problems: (1) SIRS (systemic inflammatory response syndrome) Status: Acute Comment Review of Relevant I have reviewed the following items nga (where applicable) has been applied. Labs Laboratory Tests Test 06/17/18 21:05 06/17/18 21:15 06/17/18 22:27 06/18/18 02:30 White Blood Count 20.1 x10^3/uL (4.0-11.0) Red Blood Count 5.64 x10^6/uL (4.30-5.70) Hemoglobin 17.0 g/dL (13.0-17.5) Hematocrit 48.8 % (39.0-53.0) Mean Corpuscular Volume 87 fL (79-100) Mean Corpuscular Hemoglobin 30 pg (25-35) Mean Corpuscular Hemoglobin Concent 35 g/dL (31-37) Red Cell Distribution Width 14.2 % (11.5-14.5) Platelet Count 253 x10^3/uL (140-400) Neutrophils (%) (Auto) 93 % (31-73) Lymphocytes (%) (Auto) 2 % (24-48) Monocytes (%) (Auto) 4 % (0-9) Eosinophils (%) (Auto) 0 % (0-3) Basophils (%) (Auto) 1 % (0-3) Neutrophils # (Auto) 18.7 x10^3uL (1.8-7.7) Lymphocytes # (Auto) 0.4 x10^3/uL (1.0-4.8) Monocytes # (Auto) 0.8 x10^3/uL (0.0-1.1) Eosinophils # (Auto) 0.0 x10^3/uL (0.0-0.7) Basophils # (Auto) 0.1 x10^3/uL (0.0-0.2) Segmented Neutrophils % 62 % (35-66) Band Neutrophils % 28 % (0-9) Lymphocytes % 5 % (24-48) Atypical Lymphocytes % (Manual) 1 % (0-0) Monocytes % 3 % (0-10) Basophils % 1 % (0-3) Platelet Estimate Adequate (ADEQUATE) Sodium Level 137 mmol/L (136-145) Potassium Level 3.8 mmol/L (3.5-5.1) Chloride Level 98 mmol/L (98-107) Carbon Dioxide Level 24 mmol/L (21-32) Anion Gap 15 (6-14) Blood Urea Nitrogen 18 mg/dL (8-26) Creatinine 1.5 mg/dL (0.7-1.3) Estimated GFR (Cockcroft-Gault) 52.1 BUN/Creatinine Ratio 12 (6-20) Glucose Level 153 mg/dL (70-99) Calcium Level 9.4 mg/dL (8.5-10.1) Total Bilirubin 1.1 mg/dL (0.2-1.0) Aspartate Amino Transf (AST/SGOT) 21 U/L (15-37) Alanine Aminotransferase (ALT/SGPT) 45 U/L (16-63) Alkaline Phosphatase 77 U/L (46-116) Total Protein 9.0 g/dL (6.4-8.2) Albumin 4.3 g/dL (3.4-5.0) Albumin/Globulin Ratio 0.9 (1.0-1.7) Lipase 112 U/L (73-393) Procalcitonin 1.12 ng/mL (0.00-0.10) Urine Collection Type Unknown Urine Color Debo Urine Clarity Clear Urine pH 5.0 Urine Specific [place] >=1.030 Urine Protein 30 mg/dL (NEG-TRACE) Urine Glucose (UA) Negative mg/dL (NEG) Urine Ketones (Stick) Trace mg/dL (NEG) Urine Blood Moderate (NEG) Urine Nitrite Negative (NEG) Urine Bilirubin Negative (NEG) Urine Urobilinogen Dipstick 0.2 mg/dL (0.2 mg/dL) Urine Leukocyte Esterase Negative (NEG) Urine RBC Occ /HPF (0-2) Urine WBC Occ /HPF (0-4) Urine Squamous Epithelial Cells Occ /LPF Urine Bacteria 0 /HPF (0-FEW) Urine Hyaline Casts Few /HPF Urine Mucus Marked /LPF Urine Opiates Screen Neg (NEG) Urine Methadone Screen Neg (NEG) Urine Barbiturates Neg (NEG) Urine Phencyclidine Screen Neg (NEG) Urine Amphetamine/Methamphetamine Neg (NEG) Urine Benzodiazepines Screen Neg (NEG) Urine Cocaine Screen Neg (NEG) Urine Cannabinoids Screen Neg (NEG) Urine Ethyl Alcohol Neg (NEG) Influenza Type A Antigen Negative (NEGATIVE) Influenza Type B Antigen Negative (NEGATIVE) Lactic Acid Level 3.4 mmol/L (0.4-2.0) 2.0 mmol/L (0.4-2.0) HIV (1&2) Antibody Screen Nonreactive (Nonreactive) Test 06/18/18 07:20 06/18/18 12:24 06/19/18 04:00 Clostridium difficile Toxin (PCR) Negative (Negative) Stool Occult Blood Positive (NEG) White Blood Count 4.3 x10^3/uL (4.0-11.0) Red Blood Count 4.89 x10^6/uL (4.30-5.70) Hemoglobin 14.7 g/dL (13.0-17.5) Hematocrit 42.0 % (39.0-53.0) Mean Corpuscular Volume 86 fL (79-100) Mean Corpuscular Hemoglobin 30 pg (25-35) Mean Corpuscular Hemoglobin Concent 35 g/dL (31-37) Red Cell Distribution Width 14.1 % (11.5-14.5) Platelet Count 179 x10^3/uL (140-400) Neutrophils (%) (Auto) 74 % (31-73) Lymphocytes (%) (Auto) 14 % (24-48) Monocytes (%) (Auto) 12 % (0-9) Eosinophils (%) (Auto) 0 % (0-3) Basophils (%) (Auto) 0 % (0-3) Neutrophils # (Auto) 3.2 x10^3uL (1.8-7.7) Lymphocytes # (Auto) 0.6 x10^3/uL (1.0-4.8) Monocytes # (Auto) 0.5 x10^3/uL (0.0-1.1) Eosinophils # (Auto) 0.0 x10^3/uL (0.0-0.7) Basophils # (Auto) 0.0 x10^3/uL (0.0-0.2) Sodium Level 136 mmol/L (136-145) Potassium Level 3.2 mmol/L (3.5-5.1) Chloride Level 101 mmol/L (98-107) Carbon Dioxide Level 26 mmol/L (21-32) Anion Gap 9 (6-14) Blood Urea Nitrogen 9 mg/dL (8-26) Creatinine 1.0 mg/dL (0.7-1.3) Estimated GFR (Cockcroft-Gault) 83.2 Glucose Level 144 mg/dL (70-99) Calcium Level 8.4 mg/dL (8.5-10.1) Laboratory Tests Test 06/18/18 12:24 06/19/18 04:00 Stool Occult Blood Positive (NEG) White Blood Count 4.3 x10^3/uL (4.0-11.0) Red Blood Count 4.89 x10^6/uL (4.30-5.70) Hemoglobin 14.7 g/dL (13.0-17.5) Hematocrit 42.0 % (39.0-53.0) Mean Corpuscular Volume 86 fL (79-100) Mean Corpuscular Hemoglobin 30 pg (25-35) Mean Corpuscular Hemoglobin Concent 35 g/dL (31-37) Red Cell Distribution Width 14.1 % (11.5-14.5) Platelet Count 179 x10^3/uL (140-400) Neutrophils (%) (Auto) 74 % (31-73) Lymphocytes (%) (Auto) 14 % (24-48) Monocytes (%) (Auto) 12 % (0-9) Eosinophils (%) (Auto) 0 % (0-3) Basophils (%) (Auto) 0 % (0-3) Neutrophils # (Auto) 3.2 x10^3uL (1.8-7.7) Lymphocytes # (Auto) 0.6 x10^3/uL (1.0-4.8) Monocytes # (Auto) 0.5 x10^3/uL (0.0-1.1) Eosinophils # (Auto) 0.0 x10^3/uL (0.0-0.7) Basophils # (Auto) 0.0 x10^3/uL (0.0-0.2) Sodium Level 136 mmol/L (136-145) Potassium Level 3.2 mmol/L (3.5-5.1) Chloride Level 101 mmol/L (98-107) Carbon Dioxide Level 26 mmol/L (21-32) Anion Gap 9 (6-14) Blood Urea Nitrogen 9 mg/dL (8-26) Creatinine 1.0 mg/dL (0.7-1.3) Estimated GFR (Cockcroft-Gault) 83.2 Glucose Level 144 mg/dL (70-99) Calcium Level 8.4 mg/dL (8.5-10.1) Microbiology 06/17/18 Blood Culture - Preliminary, Resulted NO GROWTH AFTER 1 DAY 06/18/18 Fecal Leukocyte Stain - Final, Complete Medications Current Medications Ondansetron HCl (Zofran) 4 mg 1X ONCE IV Last administered on 06/17/18at 21:47 ; Start 06/17/18 at 21:30; Stop 06/17/18 at 21:31; Status DC Famotidine (Pepcid Vial) 20 mg 1X ONCE IVP Last administered on 06/17/18at 21: 47; Start 06/17/18 at 21:30; Stop 06/17/18 at 21:31; Status DC Ketorolac Tromethamine (Toradol 30mg Vial) 30 mg 1X ONCE IV Last administered on 06/17/18at 21:46; Start 06/17/18 at 21:30; Stop 06/17/18 at 21:31; Status DC Sodium Chloride 1,000 ml @ 1,000 mls/hr 1X ONCE IV Last administered on 06/17at 21:20; Start 06/17/18 at 21:30; Stop 06/17/18 at 22:29; Status DC Iohexol (Omnipaque 300 Mg/ml) 75 ml 1X ONCE IV Last administered on at 21:54; Start 06/17/18 at 22:00; Stop 06/17/18 at 22:01; Status DC Info (CONTRAST GIVEN -- Rx MONITORING) 1 each PRN DAILY PRN MC SEE COMMENTS; Start 06/17/18 at 21:30; Stop 06/19/18 at 21:29 Sodium Chloride 1,000 ml @ 1,000 mls/hr 1X ONCE IV Last administered on 06/17at 22:35; Start 06/17/18 at 22:30; Stop 06/17/18 at 23:29; Status DC Ondansetron HCl (Zofran) 4 mg PRN Q8HRS PRN IV NAUSEA/VOMITING 1ST CHOICE Last administered on 06/18/18at 12:48; Start 06/17/18 at 22:30; Stop 06/18/18 at 15 :53; Status DC Fentanyl Citrate (Fentanyl 2ml Vial) 50 mcg PRN Q2HR PRN IV SEVERE PAIN Last administered on 06/18/18at 00:30; Start 06/17/18 at 22:30; Stop 06/18/18 at 22 :29; Status DC Sodium Chloride 1,000 ml @ 80 mls/hr [id number] IV Last administered on at 15:24; Start 06/17/18 at 23:00; Stop 06/18/18 at 15:44; Status DC Acetaminophen (Tylenol) 650 mg PRN Q4HRS PRN PO FEVER Last administered on at 15:24; Start 06/17/18 at 22:30; Stop 06/18/18 at 15:52; Status DC Metronidazole 100 ml @ 100 mls/hr 1X ONCE IV Last administered on 06/18/18at 00:21; Start 06/17/18 at 23:00; Stop 06/18/18 at 12:07; Status DC Ciprofloxacin/ Dextrose 200 ml @ 200 mls/hr 1X ONCE IV Last administered on 06/17/18at 23:15; Start 06/17/18 at 23:00; Stop 06/18/18 at 12:07; Status DC Piperacillin Sod/ Tazobactam Sod 3.375 gm/Sodium Chloride 50 ml @ 100 mls/hr Q6HRS IV Last administered on 06/19/18at 06:04; Start 06/18/18 at 12:30 Acetaminophen (Tylenol) 650 mg PRN Q6HRS PRN PO FEVER Last administered on at 20:39; Start 06/18/18 at 15:45 Ondansetron HCl (Zofran) 4 mg PRN Q6HRS PRN IV NAUSEA/VOMITING; Start at 15:45 Morphine Sulfate (Morphine Sulfate) 2 mg PRN Q2HR PRN IV MODERATE TO SEVERE PAIN; Start 06/18/18 at 15:45 Tramadol HCl (Ultram) 50 mg PRN Q6HRS PRN PO MILD TO MODERATE PAIN; Start at 15:45 Docusate Sodium (Colace) 100 mg PRN DAILY PRN PO CONSTIPATION; Start 06/18/18 at 15:45 Sodium Chloride 1,000 ml @ 125 mls/hr Q8H IV Last administered on 06/19/18at 10:14; Start 06/18/18 at 15:45 Heparin Sodium (Porcine) (Heparin Sodium) 5,000 unit Q8HRS SQ Last administered on 06/19/18at 06:07; Start 06/18/18 at 22:00 Famotidine (Pepcid Vial) 20 mg QHS IVP Last administered on 06/18/18at 20:41; Start 06/18/18 at 21:00 Active Scripts Active Reported [{No home meds}] Vitals/I & O Vital Sign - Last 24 Hours 06/18/18 06/18/18 06/18/18 06/18/18 15:00 19:00 20:00 23:00 Temp 102.6 101.0 101.2 102.6 101.0 101.2 Pulse 97 92 89 Resp 20 20 20 B/P (MAP) 142/83 (102) 142/88 (106) 136/79 (98) Pulse Ox 96 99 95 O2 Delivery Room Air Room Air Room Air Room Air 06/19/18 06/19/18 06/19/18 03:15 07:35 07:45 Temp 99.9 97.7 99.9 97.7 Pulse 90 86 Resp 20 18 B/P (MAP) 141/86 (104) 141/86 (104) Pulse Ox 95 96 O2 Delivery Room Air Room Air Room Air Intake and Output 06/18/18 06/18/18 06/19/18 15:00 23:00 07:00 Intake Total 50 ml 120 ml 1000 ml Balance 50 ml 120 ml 1000 ml ROXY ANDUJAR MD Jun 19, 2018 11:05
[2018-06-19] MEDS: CIPROFLOXACIN 400MG PREMIX 200 ML IV SCH ×2 (13:14→22:14)
[2018-06-19 15:00] VITALS: BP 114/74
[2018-06-19 19:00] VITALS: BP 131/78
[2018-06-19] MEDS: FAMOTIDINE 20 MG/2 ML VIAL IVP SCH (20:56)
[2018-06-19] MEDS: LACTOBACILLUS RHAMNOSUS GG 1 CAPSULE. PO SCH (20:56)
[2018-06-19 23:07] VITALS: BP 129/80
[2018-06-20 03:09] VITALS: BP 109/70
[2018-06-20] MEDS: IV NORMAL SALINE 1000ML BAG 1,000 ML IV SCH (05:37)
[2018-06-20] MEDS: HEPARIN for SUB-Q USE 5,000 UNIT/ML VIAL. SQ SCH (05:40)
[2018-06-20 07:00] VITALS: BP 113/78
[2018-06-20] MEDS: LACTOBACILLUS RHAMNOSUS GG 1 CAPSULE. PO SCH (09:06)
[2018-06-20] MEDS: CIPROFLOXACIN 400MG PREMIX 200 ML IV SCH (09:26)
[2018-06-20 09:57] LABS: BASO % 1 % (0-3); EOS % 1 % (0-3); HEMATOCRIT 42.5 % (39.0-53.0); HEMOGLOBIN 14.7 g/dL (13.0-17.5); LYMPH # 1.2 x10^3/uL (1.0-4.8); LYMPH % 32 % (24-48); MEAN CORPUSCULAR HEMOGLOBIN 30 pg (25-35); MEAN CORPUSCULAR HGB CONC 35 g/dL (31-37); MEAN CORPUSCULAR VOLUME 86 fL (79-100); MONO # 0.7 x10^3/uL (0.0-1.1); MONO % 18 % (0-9); NEUT # 1.9 x10^3uL (1.8-7.7); NEUT % 49 % (31-73); PLATELET COUNT 203 x10^3/uL (140-400); RED BLOOD COUNT 4.92 x10^6/uL (4.30-5.70); RED CELL DISTRIBUTION WIDTH 14.4 % (11.5-14.5); WHITE BLOOD COUNT 3.9 x10^3/uL (4.0-11.0)
[2018-06-20 10:05] LABS: ALBUMIN 2.9 g/dL (3.4-5.0); ALBUMIN/GLOBULIN RATIO 0.7 (1.0-1.7); CALCIUM 8.4 mg/dL (8.5-10.1); CREATININE 0.8 mg/dL (0.7-1.3); GFR 107.6; TOTAL BILIRUBIN 0.4 mg/dL (0.2-1.0); TOTAL PROTEIN 7.2 g/dL (6.4-8.2)
--- NOTE | 2018-06-20 10:58 | PDOC ---
PROGRESS NOTES History of Present Illness History of Present Illness Assessment/Plan Assessment/Plan abd pain, N/V diarrhea, 2/2 possible viral gastroenteritis fever SIRS leukocytosis hypokalemia, replaced plan: insists on d/c today, can see pcp in [address] abd neg. flu neg ID rec flagyl and cipro bcx pending check stool cx ivf lactose free diet pain control dvt ppx gi ppx start cipro and flagyl Follow up blood culture crypto Giardia antigen, ova and parasite pending fecal cultures Vitals Vitals Vital Signs Date Time Temp Pulse Resp B/P (MAP) Pulse Ox O2 Delivery O2 Flow Rate FiO2 06/20/18 07:00 97.9 66 20 113/78 (90) 95 Room Air 97.9 Physical Exam Physical Exam GENERAL: Alert and oriented x 3, Italian speaking male understands and talks in Chinese, in no acute distress, lying comfortably in bed and nontoxic appearing. HEENT: Normocephalic and atraumatic. Anicteric. No thrush. Oral mucosa is moist. NECK: Supple. No JVD. LUNGS: Clear bilaterally. No wheezing. HEART: S1 and S2. No gallops, murmurs or rubs. ABDOMEN: Soft and nontender. Mild tenderness in the mid quadrant. No rebound and no guarding. EXTREMITIES: No edema and no cyanosis. DERM: Warm, dry and no generalized rash. CENTRAL NERVOUS SYSTEM: Alert and oriented x 3. Grossly nonfocal. PSYCHIATRIC: Appropriate mood and affect. General: Alert, Oriented X3, Cooperative, No acute distress Heart: Regular rate Lungs: Clear Abdomen: Normal bowel sounds, No tenderness Extremities: No cyanosis, No edema Labs LABS Laboratory Tests Test 06/20/18 09:20 White Blood Count 3.9 x10^3/uL (4.0-11.0) Red Blood Count 4.92 x10^6/uL (4.30-5.70) Hemoglobin 14.7 g/dL (13.0-17.5) Hematocrit 42.5 % (39.0-53.0) Mean Corpuscular Volume 86 fL (79-100) Mean Corpuscular Hemoglobin 30 pg (25-35) Mean Corpuscular Hemoglobin Concent 35 g/dL (31-37) Red Cell Distribution Width 14.4 % (11.5-14.5) Platelet Count 203 x10^3/uL (140-400) Neutrophils (%) (Auto) 49 % (31-73) Lymphocytes (%) (Auto) 32 % (24-48) Monocytes (%) (Auto) 18 % (0-9) Eosinophils (%) (Auto) 1 % (0-3) Basophils (%) (Auto) 1 % (0-3) Neutrophils # (Auto) 1.9 x10^3uL (1.8-7.7) Lymphocytes # (Auto) 1.2 x10^3/uL (1.0-4.8) Monocytes # (Auto) 0.7 x10^3/uL (0.0-1.1) Eosinophils # (Auto) 0.0 x10^3/uL (0.0-0.7) Basophils # (Auto) 0.0 x10^3/uL (0.0-0.2) Sodium Level 142 mmol/L (136-145) Potassium Level 3.0 mmol/L (3.5-5.1) Chloride Level 105 mmol/L (98-107) Carbon Dioxide Level 27 mmol/L (21-32) Anion Gap 10 (6-14) Blood Urea Nitrogen 8 mg/dL (8-26) Creatinine 0.8 mg/dL (0.7-1.3) Estimated GFR (Cockcroft-Gault) 107.6 BUN/Creatinine Ratio 10 (6-20) Glucose Level 109 mg/dL (70-99) Calcium Level 8.4 mg/dL (8.5-10.1) Total Bilirubin 0.4 mg/dL (0.2-1.0) Aspartate Amino Transf (AST/SGOT) 25 U/L (15-37) Alanine Aminotransferase (ALT/SGPT) 35 U/L (16-63) Alkaline Phosphatase 60 U/L (46-116) Total Protein 7.2 g/dL (6.4-8.2) Albumin 2.9 g/dL (3.4-5.0) Albumin/Globulin Ratio 0.7 (1.0-1.7) Assessment and Plan Assessmemt and Plan Problems Medical Problems: (1) SIRS (systemic inflammatory response syndrome) Status: Acute Comment Review of Relevant I have reviewed the following items nga (where applicable) has been applied. Labs Laboratory Tests Test 06/18/18 11:58 06/18/18 12:24 06/19/18 04:00 06/20/18 09:20 Giardia lamblia Antigen Negative (Negative) Stool Occult Blood Positive (NEG) White Blood Count 4.3 x10^3/uL (4.0-11.0) 3.9 x10^3/uL (4.0-11.0) Red Blood Count 4.89 x10^6/uL (4.30-5.70) 4.92 x10^6/uL (4.30-5.70) Hemoglobin 14.7 g/dL (13.0-17.5) 14.7 g/dL (13.0-17.5) Hematocrit 42.0 % (39.0-53.0) 42.5 % (39.0-53.0) Mean Corpuscular Volume 86 fL (79-100) 86 fL (79-100) Mean Corpuscular Hemoglobin 30 pg (25-35) 30 pg (25-35) Mean Corpuscular Hemoglobin Concent 35 g/dL (31-37) 35 g/dL (31-37) Red Cell Distribution Width 14.1 % (11.5-14.5) 14.4 % (11.5-14.5) Platelet Count 179 x10^3/uL (140-400) 203 x10^3/uL (140-400) Neutrophils (%) (Auto) 74 % (31-73) 49 % (31-73) Lymphocytes (%) (Auto) 14 % (24-48) 32 % (24-48) Monocytes (%) (Auto) 12 % (0-9) 18 % (0-9) Eosinophils (%) (Auto) 0 % (0-3) 1 % (0-3) Basophils (%) (Auto) 0 % (0-3) 1 % (0-3) Neutrophils # (Auto) 3.2 x10^3uL (1.8-7.7) 1.9 x10^3uL (1.8-7.7) Lymphocytes # (Auto) 0.6 x10^3/uL (1.0-4.8) 1.2 x10^3/uL (1.0-4.8) Monocytes # (Auto) 0.5 x10^3/uL (0.0-1.1) 0.7 x10^3/uL (0.0-1.1) Eosinophils # (Auto) 0.0 x10^3/uL (0.0-0.7) 0.0 x10^3/uL (0.0-0.7) Basophils # (Auto) 0.0 x10^3/uL (0.0-0.2) 0.0 x10^3/uL (0.0-0.2) Sodium Level 136 mmol/L (136-145) 142 mmol/L (136-145) Potassium Level 3.2 mmol/L (3.5-5.1) 3.0 mmol/L (3.5-5.1) Chloride Level 101 mmol/L (98-107) 105 mmol/L (98-107) Carbon Dioxide Level 26 mmol/L (21-32) 27 mmol/L (21-32) Anion Gap 9 (6-14) 10 (6-14) Blood Urea Nitrogen 9 mg/dL (8-26) 8 mg/dL (8-26) Creatinine 1.0 mg/dL (0.7-1.3) 0.8 mg/dL (0.7-1.3) Estimated GFR (Cockcroft-Gault) 83.2 107.6 Glucose Level 144 mg/dL (70-99) 109 mg/dL (70-99) Calcium Level 8.4 mg/dL (8.5-10.1) 8.4 mg/dL (8.5-10.1) BUN/Creatinine Ratio 10 (6-20) Total Bilirubin 0.4 mg/dL (0.2-1.0) Aspartate Amino Transf (AST/SGOT) 25 U/L (15-37) Alanine Aminotransferase (ALT/SGPT) 35 U/L (16-63) Alkaline Phosphatase 60 U/L (46-116) Total Protein 7.2 g/dL (6.4-8.2) Albumin 2.9 g/dL (3.4-5.0) Albumin/Globulin Ratio 0.7 (1.0-1.7) Laboratory Tests Test 06/20/18 09:20 White Blood Count 3.9 x10^3/uL (4.0-11.0) Red Blood Count 4.92 x10^6/uL (4.30-5.70) Hemoglobin 14.7 g/dL (13.0-17.5) Hematocrit 42.5 % (39.0-53.0) Mean Corpuscular Volume 86 fL (79-100) Mean Corpuscular Hemoglobin 30 pg (25-35) Mean Corpuscular Hemoglobin Concent 35 g/dL (31-37) Red Cell Distribution Width 14.4 % (11.5-14.5) Platelet Count 203 x10^3/uL (140-400) Neutrophils (%) (Auto) 49 % (31-73) Lymphocytes (%) (Auto) 32 % (24-48) Monocytes (%) (Auto) 18 % (0-9) Eosinophils (%) (Auto) 1 % (0-3) Basophils (%) (Auto) 1 % (0-3) Neutrophils # (Auto) 1.9 x10^3uL (1.8-7.7) Lymphocytes # (Auto) 1.2 x10^3/uL (1.0-4.8) Monocytes # (Auto) 0.7 x10^3/uL (0.0-1.1) Eosinophils # (Auto) 0.0 x10^3/uL (0.0-0.7) Basophils # (Auto) 0.0 x10^3/uL (0.0-0.2) Sodium Level 142 mmol/L (136-145) Potassium Level 3.0 mmol/L (3.5-5.1) Chloride Level 105 mmol/L (98-107) Carbon Dioxide Level 27 mmol/L (21-32) Anion Gap 10 (6-14) Blood Urea Nitrogen 8 mg/dL (8-26) Creatinine 0.8 mg/dL (0.7-1.3) Estimated GFR (Cockcroft-Gault) 107.6 BUN/Creatinine Ratio 10 (6-20) Glucose Level 109 mg/dL (70-99) Calcium Level 8.4 mg/dL (8.5-10.1) Total Bilirubin 0.4 mg/dL (0.2-1.0) Aspartate Amino Transf (AST/SGOT) 25 U/L (15-37) Alanine Aminotransferase (ALT/SGPT) 35 U/L (16-63) Alkaline Phosphatase 60 U/L (46-116) Total Protein 7.2 g/dL (6.4-8.2) Albumin 2.9 g/dL (3.4-5.0) Albumin/Globulin Ratio 0.7 (1.0-1.7) Microbiology 06/17/18 Blood Culture - Preliminary, Resulted NO GROWTH AFTER 2 DAYS 06/18/18 Stool Culture - Final, Resulted 06/18/18 Stool Culture Result 1 (RODRIGUE) - Final, Resulted 06/18/18 Campylobacter Antigen Assay - Preliminary, Resulted 06/18/18 Campylobactor Result 1 - Preliminary, Resulted 06/18/18 Shiga Toxin Test, Resulted Pending Medications Current Medications Ondansetron HCl (Zofran) 4 mg 1X ONCE IV Last administered on 06/17/18at 21:47 ; Start 06/17/18 at 21:30; Stop 06/17/18 at 21:31; Status DC Famotidine (Pepcid Vial) 20 mg 1X ONCE IVP Last administered on 06/17/18at 21: 47; Start 06/17/18 at 21:30; Stop 06/17/18 at 21:31; Status DC Ketorolac Tromethamine (Toradol 30mg Vial) 30 mg 1X ONCE IV Last administered on 06/17/18at 21:46; Start 06/17/18 at 21:30; Stop 06/17/18 at 21:31; Status DC Sodium Chloride 1,000 ml @ 1,000 mls/hr 1X ONCE IV Last administered on 06/17at 21:20; Start 06/17/18 at 21:30; Stop 06/17/18 at 22:29; Status DC Iohexol (Omnipaque 300 Mg/ml) 75 ml 1X ONCE IV Last administered on at 21:54; Start 06/17/18 at 22:00; Stop 06/17/18 at 22:01; Status DC Info (CONTRAST GIVEN -- Rx MONITORING) 1 each PRN DAILY PRN MC SEE COMMENTS; Start 06/17/18 at 21:30; Stop 06/19/18 at 21:29; Status DC Sodium Chloride 1,000 ml @ 1,000 mls/hr 1X ONCE IV Last administered on 06/17at 22:35; Start 06/17/18 at 22:30; Stop 06/17/18 at 23:29; Status DC Ondansetron HCl (Zofran) 4 mg PRN Q8HRS PRN IV NAUSEA/VOMITING 1ST CHOICE Last administered on 06/18/18at 12:48; Start 06/17/18 at 22:30; Stop 06/18/18 at 15 :53; Status DC Fentanyl Citrate (Fentanyl 2ml Vial) 50 mcg PRN Q2HR PRN IV SEVERE PAIN Last administered on 06/18/18at 00:30; Start 06/17/18 at 22:30; Stop 06/18/18 at 22 :29; Status DC Sodium Chloride 1,000 ml @ 80 mls/hr [id number] IV Last administered on at 15:24; Start 06/17/18 at 23:00; Stop 06/18/18 at 15:44; Status DC Acetaminophen (Tylenol) 650 mg PRN Q4HRS PRN PO FEVER Last administered on at 15:24; Start 06/17/18 at 22:30; Stop 06/18/18 at 15:52; Status DC Metronidazole 100 ml @ 100 mls/hr 1X ONCE IV Last administered on 06/18/18at 00:21; Start 06/17/18 at 23:00; Stop 06/18/18 at 12:07; Status DC Ciprofloxacin/ Dextrose 200 ml @ 200 mls/hr 1X ONCE IV Last administered on 06/17/18at 23:15; Start 06/17/18 at 23:00; Stop 06/18/18 at 12:07; Status DC Piperacillin Sod/ Tazobactam Sod 3.375 gm/Sodium Chloride 50 ml @ 100 mls/hr Q6HRS IV Last administered on 06/19/18at 12:00; Start 06/18/18 at 12:30; Stop 06/19/18 at 12:18; Status DC Acetaminophen (Tylenol) 650 mg PRN Q6HRS PRN PO FEVER Last administered on at 20:39; Start 06/18/18 at 15:45 Ondansetron HCl (Zofran) 4 mg PRN Q6HRS PRN IV NAUSEA/VOMITING; Start at 15:45 Morphine Sulfate (Morphine Sulfate) 2 mg PRN Q2HR PRN IV MODERATE TO SEVERE PAIN; Start 06/18/18 at 15:45 Tramadol HCl (Ultram) 50 mg PRN Q6HRS PRN PO MILD TO MODERATE PAIN; Start at 15:45 Docusate Sodium (Colace) 100 mg PRN DAILY PRN PO CONSTIPATION; Start 06/18/18 at 15:45 Sodium Chloride 1,000 ml @ 125 mls/hr Q8H IV Last administered on 06/20/18at 05:37; Start 06/18/18 at 15:45 Heparin Sodium (Porcine) (Heparin Sodium) 5,000 unit Q8HRS SQ Last administered on 06/20/18at 05:40; Start 06/18/18 at 22:00 Famotidine (Pepcid Vial) 20 mg QHS IVP Last administered on 06/19/18at 20:56; Start 06/18/18 at 21:00 Ciprofloxacin/ Dextrose 200 ml @ 200 mls/hr Q12HR IV Last administered on at 09:26; Start 06/19/18 at 13:00 Metronidazole 100 ml @ 100 mls/hr Q12HR IV Last administered on 06/19/18at 20: 56; Start 06/19/18 at 13:00 Lactobacillus Rhamnosus (Culturelle) 1 cap BID PO Last administered on 09:06; Start 06/19/18 at 21:00 Active Scripts Active Reported [{No home meds}] Vitals/I & O Vital Sign - Last 24 Hours 06/19/18 06/19/18 06/19/18 06/19/18 11:00 15:00 19:00 20:00 Temp 99.0 99.2 99.7 99.0 99.2 99.7 Pulse 77 76 80 Resp 18 16 20 B/P (MAP) 134/82 (99) 114/74 (87) 131/78 (95) Pulse Ox 98 96 95 O2 Delivery Room Air Room Air Room Air Room Air 06/19/18 06/20/18 06/20/18 23:07 03:09 07:00 Temp 98.6 98.6 97.9 98.6 98.6 97.9 Pulse 73 69 66 Resp 20 20 20 B/P (MAP) 129/80 (96) 109/70 (83) 113/78 (90) Pulse Ox 95 96 95 O2 Delivery Room Air Room Air Room Air Intake and Output 06/19/18 06/19/18 06/20/18 15:00 23:00 07:00 Intake Total 1050 ml Output Total 0 ml Balance 1050 ml 0 ml ROXY ANDUJAR MD Jun 20, 2018 10:58
[2018-06-20 11:00] VITALS: BP 125/72
--- NOTE | 2018-06-20 11:22 | PDOC3 ---
Discharge Summary Date of Admission: Jun 17, 2018 Date of Discharge: Jun 20, 2018 Follow-Up: 3-5 days Admitting Diagnosis comment: discharge dx Assessment/Plan abd pain, N/V diarrhea, 2/2 possible viral gastroenteritis fever SIRS leukocytosis hypokalemia, replaced plan: insists on d/c today, can see pcp in [address] abd neg. flu neg ID rec flagyl and cipro bcx pending check stool cx ivf lactose free diet pain control dvt ppx gi ppx start cipro and flagyl Follow up blood culture crypto Giardia antigen, ova and parasite pending fecal cultures Vitals Vitals Vital Signs Date Time Temp Pulse Resp B/P (MAP) Pulse Ox O2 Delivery O2 Flow Rate FiO2 06/20/18 07:00 97.9 66 20 113/78 (90) 95 Room Air 97.9 Physical Exam Physical Exam GENERAL: Alert and oriented x 3, Telugu speaking male understands and talks in Mexican, in no acute distress, lying comfortably in bed and nontoxic appearing. HEENT: Normocephalic and atraumatic. Anicteric. No thrush. Oral mucosa is moist. NECK: Supple. No JVD. LUNGS: Clear bilaterally. No wheezing. HEART: S1 and S2. No gallops, murmurs or rubs. ABDOMEN: Soft and nontender. No rebound and no guarding. EXTREMITIES: No edema and no cyanosis. DERM: Warm, dry and no generalized rash. CENTRAL NERVOUS SYSTEM: Alert and oriented x 3. Grossly nonfocal. PSYCHIATRIC: Appropriate mood and affect. General: Alert, Oriented X3, Cooperative, No acute distress Heart: Regular rate Lungs: Clear Abdomen: Normal bowel sounds, No tenderness Extremities: No cyanosis, No edema FINAL DIAGNOSIS Problems Medical Problems: (1) SIRS (systemic inflammatory response syndrome) Status: Acute Brief Hospital Course Mr. Guzman is a 37 old [sex] who presented with [gastroenteritis ] CONDITION AT DISCHARGE: Improved Discharge Medications Current Medications Ondansetron HCl (Zofran) 4 mg 1X ONCE IV Last administered on 06/17/18at 21:47 ; Start 06/17/18 at 21:30; Stop 06/17/18 at 21:31; Status DC Famotidine (Pepcid Vial) 20 mg 1X ONCE IVP Last administered on 06/17/18at 21: 47; Start 06/17/18 at 21:30; Stop 06/17/18 at 21:31; Status DC Ketorolac Tromethamine (Toradol 30mg Vial) 30 mg 1X ONCE IV Last administered on 06/17/18at 21:46; Start 06/17/18 at 21:30; Stop 06/17/18 at 21:31; Status DC Sodium Chloride 1,000 ml @ 1,000 mls/hr 1X ONCE IV Last administered on 06/17at 21:20; Start 06/17/18 at 21:30; Stop 06/17/18 at 22:29; Status DC Iohexol (Omnipaque 300 Mg/ml) 75 ml 1X ONCE IV Last administered on at 21:54; Start 06/17/18 at 22:00; Stop 06/17/18 at 22:01; Status DC Info (CONTRAST GIVEN -- Rx MONITORING) 1 each PRN DAILY PRN MC SEE COMMENTS; Start 06/17/18 at 21:30; Stop 06/19/18 at 21:29; Status DC Sodium Chloride 1,000 ml @ 1,000 mls/hr 1X ONCE IV Last administered on 06/17at 22:35; Start 06/17/18 at 22:30; Stop 06/17/18 at 23:29; Status DC Ondansetron HCl (Zofran) 4 mg PRN Q8HRS PRN IV NAUSEA/VOMITING 1ST CHOICE Last administered on 06/18/18at 12:48; Start 06/17/18 at 22:30; Stop 06/18/18 at 15 :53; Status DC Fentanyl Citrate (Fentanyl 2ml Vial) 50 mcg PRN Q2HR PRN IV SEVERE PAIN Last administered on 06/18/18at 00:30; Start 06/17/18 at 22:30; Stop 06/18/18 at 22 :29; Status DC Sodium Chloride 1,000 ml @ 80 mls/hr [id number] IV Last administered on at 15:24; Start 06/17/18 at 23:00; Stop 06/18/18 at 15:44; Status DC Acetaminophen (Tylenol) 650 mg PRN Q4HRS PRN PO FEVER Last administered on at 15:24; Start 06/17/18 at 22:30; Stop 06/18/18 at 15:52; Status DC Metronidazole 100 ml @ 100 mls/hr 1X ONCE IV Last administered on 06/18/18at 00:21; Start 06/17/18 at 23:00; Stop 06/18/18 at 12:07; Status DC Ciprofloxacin/ Dextrose 200 ml @ 200 mls/hr 1X ONCE IV Last administered on 06/17/18at 23:15; Start 06/17/18 at 23:00; Stop 06/18/18 at 12:07; Status DC Piperacillin Sod/ Tazobactam Sod 3.375 gm/Sodium Chloride 50 ml @ 100 mls/hr Q6HRS IV Last administered on 06/19/18at 12:00; Start 06/18/18 at 12:30; Stop 06/19/18 at 12:18; Status DC Acetaminophen (Tylenol) 650 mg PRN Q6HRS PRN PO FEVER Last administered on at 20:39; Start 06/18/18 at 15:45 Ondansetron HCl (Zofran) 4 mg PRN Q6HRS PRN IV NAUSEA/VOMITING; Start at 15:45 Morphine Sulfate (Morphine Sulfate) 2 mg PRN Q2HR PRN IV MODERATE TO SEVERE PAIN; Start 06/18/18 at 15:45 Tramadol HCl (Ultram) 50 mg PRN Q6HRS PRN PO MILD TO MODERATE PAIN; Start at 15:45 Docusate Sodium (Colace) 100 mg PRN DAILY PRN PO CONSTIPATION; Start 06/18/18 at 15:45 Sodium Chloride 1,000 ml @ 125 mls/hr Q8H IV Last administered on 06/20/18at 05:37; Start 06/18/18 at 15:45 Heparin Sodium (Porcine) (Heparin Sodium) 5,000 unit Q8HRS SQ Last administered on 06/20/18at 05:40; Start 06/18/18 at 22:00 Famotidine (Pepcid Vial) 20 mg QHS IVP Last administered on 06/19/18at 20:56; Start 06/18/18 at 21:00 Ciprofloxacin/ Dextrose 200 ml @ 200 mls/hr Q12HR IV Last administered on at 09:26; Start 06/19/18 at 13:00 Metronidazole 100 ml @ 100 mls/hr Q12HR IV Last administered on 06/19/18at 20: 56; Start 06/19/18 at 13:00 Lactobacillus Rhamnosus (Culturelle) 1 cap BID PO Last administered on at 09:06; Start 06/19/18 at 21:00 Potassium Chloride (Klor-Con) 40 meq 1X ONCE PO ; Start 06/20/18 at 11:30; Stop 06/20/18 at 11:31 Potassium Chloride (Klor-Con) 20 meq [id number] PO ; Start 06/21/18 at 08:00 Active Scripts Active Reported [{No home meds}] Vital Signs Vital Signs Date Time Temp Pulse Resp B/P (MAP) Pulse Ox O2 Delivery O2 Flow Rate FiO2 06/20/18 07:00 97.9 66 20 113/78 (90) 95 Room Air 97.9 Labs Laboratory Tests Test 06/18/18 11:58 06/18/18 12:24 06/19/18 04:00 06/20/18 09:20 Giardia lamblia Antigen Negative (Negative) Stool Occult Blood Positive (NEG) White Blood Count 4.3 x10^3/uL (4.0-11.0) 3.9 x10^3/uL (4.0-11.0) Red Blood Count 4.89 x10^6/uL (4.30-5.70) 4.92 x10^6/uL (4.30-5.70) Hemoglobin 14.7 g/dL (13.0-17.5) 14.7 g/dL (13.0-17.5) Hematocrit 42.0 % (39.0-53.0) 42.5 % (39.0-53.0) Mean Corpuscular Volume 86 fL (79-100) 86 fL (79-100) Mean Corpuscular Hemoglobin 30 pg (25-35) 30 pg (25-35) Mean Corpuscular Hemoglobin Concent 35 g/dL (31-37) 35 g/dL (31-37) Red Cell Distribution Width 14.1 % (11.5-14.5) 14.4 % (11.5-14.5) Platelet Count 179 x10^3/uL (140-400) 203 x10^3/uL (140-400) Neutrophils (%) (Auto) 74 % (31-73) 49 % (31-73) Lymphocytes (%) (Auto) 14 % (24-48) 32 % (24-48) Monocytes (%) (Auto) 12 % (0-9) 18 % (0-9) Eosinophils (%) (Auto) 0 % (0-3) 1 % (0-3) Basophils (%) (Auto) 0 % (0-3) 1 % (0-3) Neutrophils # (Auto) 3.2 x10^3uL (1.8-7.7) 1.9 x10^3uL (1.8-7.7) Lymphocytes # (Auto) 0.6 x10^3/uL (1.0-4.8) 1.2 x10^3/uL (1.0-4.8) Monocytes # (Auto) 0.5 x10^3/uL (0.0-1.1) 0.7 x10^3/uL (0.0-1.1) Eosinophils # (Auto) 0.0 x10^3/uL (0.0-0.7) 0.0 x10^3/uL (0.0-0.7) Basophils # (Auto) 0.0 x10^3/uL (0.0-0.2) 0.0 x10^3/uL (0.0-0.2) Sodium Level 136 mmol/L (136-145) 142 mmol/L (136-145) Potassium Level 3.2 mmol/L (3.5-5.1) 3.0 mmol/L (3.5-5.1) Chloride Level 101 mmol/L (98-107) 105 mmol/L (98-107) Carbon Dioxide Level 26 mmol/L (21-32) 27 mmol/L (21-32) Anion Gap 9 (6-14) 10 (6-14) Blood Urea Nitrogen 9 mg/dL (8-26) 8 mg/dL (8-26) Creatinine 1.0 mg/dL (0.7-1.3) 0.8 mg/dL (0.7-1.3) Estimated GFR (Cockcroft-Gault) 83.2 107.6 Glucose Level 144 mg/dL (70-99) 109 mg/dL (70-99) Calcium Level 8.4 mg/dL (8.5-10.1) 8.4 mg/dL (8.5-10.1) BUN/Creatinine Ratio 10 (6-20) Total Bilirubin 0.4 mg/dL (0.2-1.0) Aspartate Amino Transf (AST/SGOT) 25 U/L (15-37) Alanine Aminotransferase (ALT/SGPT) 35 U/L (16-63) Alkaline Phosphatase 60 U/L (46-116) Total Protein 7.2 g/dL (6.4-8.2) Albumin 2.9 g/dL (3.4-5.0) Albumin/Globulin Ratio 0.7 (1.0-1.7) Laboratory Tests Test 06/20/18 09:20 White Blood Count 3.9 x10^3/uL (4.0-11.0) Red Blood Count 4.92 x10^6/uL (4.30-5.70) Hemoglobin 14.7 g/dL (13.0-17.5) Hematocrit 42.5 % (39.0-53.0) Mean Corpuscular Volume 86 fL (79-100) Mean Corpuscular Hemoglobin 30 pg (25-35) Mean Corpuscular Hemoglobin Concent 35 g/dL (31-37) Red Cell Distribution Width 14.4 % (11.5-14.5) Platelet Count 203 x10^3/uL (140-400) Neutrophils (%) (Auto) 49 % (31-73) Lymphocytes (%) (Auto) 32 % (24-48) Monocytes (%) (Auto) 18 % (0-9) Eosinophils (%) (Auto) 1 % (0-3) Basophils (%) (Auto) 1 % (0-3) Neutrophils # (Auto) 1.9 x10^3uL (1.8-7.7) Lymphocytes # (Auto) 1.2 x10^3/uL (1.0-4.8) Monocytes # (Auto) 0.7 x10^3/uL (0.0-1.1) Eosinophils # (Auto) 0.0 x10^3/uL (0.0-0.7) Basophils # (Auto) 0.0 x10^3/uL (0.0-0.2) Sodium Level 142 mmol/L (136-145) Potassium Level 3.0 mmol/L (3.5-5.1) Chloride Level 105 mmol/L (98-107) Carbon Dioxide Level 27 mmol/L (21-32) Anion Gap 10 (6-14) Blood Urea Nitrogen 8 mg/dL (8-26) Creatinine 0.8 mg/dL (0.7-1.3) Estimated GFR (Cockcroft-Gault) 107.6 BUN/Creatinine Ratio 10 (6-20) Glucose Level 109 mg/dL (70-99) Calcium Level 8.4 mg/dL (8.5-10.1) Total Bilirubin 0.4 mg/dL (0.2-1.0) Aspartate Amino Transf (AST/SGOT) 25 U/L (15-37) Alanine Aminotransferase (ALT/SGPT) 35 U/L (16-63) Alkaline Phosphatase 60 U/L (46-116) Total Protein 7.2 g/dL (6.4-8.2) Albumin 2.9 g/dL (3.4-5.0) Albumin/Globulin Ratio 0.7 (1.0-1.7) Allergies Allergies Coded Allergies Type Severity Reaction Last Updated Verified No Known Drug Allergies 06/17/18 No Disposition/Orders: D/C to Home Patient Instructions d/c planning 33 min ROXY ANDUAJR MD Jun 20, 2018 11:22
--- NOTE | 2018-06-20 11:25 | DISCH ---
DISCHARGE INSTRUCTIONS Condition on Discharge Condition on Discharge: Stable Activity After Discharge Activity Instructions for Disc: Resume previous activity Driving Instructions after Dis: Do not drive today Diet after Discharge Diet after Discharge: Nallely Contacting the DR. after DC Call your doctor for: If your condition worsens ROXY ANDUJAR MD Jun 20, 2018 11:25
[2018-06-20] MEDS ORDERED: POTASSIUM CHLORIDE 20 MEQ TABLET.ER. PO ONE (11:30)
[2018-06-20] MEDS ORDERED: METR500T PO (11:31)
[2018-06-20] MEDS ORDERED: CIPR500T94 PO (11:31)
[2018-06-20] MEDS ORDERED: LACT1CAP19 PO (11:31)
[2018-06-20] MEDS ORDERED: POTA20TA4 PO (11:31)
--- NOTE | 2018-06-20 11:31 | PDOC ---
Infectious Disease Note Subjective: Subjective Pt feels better this am has diarrhea but frequency improving, goes every 8hr wants to be dc as has an appt needs to keep ,very important no n/c/fc/sob/gu symptoms ROS: ROS Negative except for above. Vital Signs: Vital Signs Vital Signs Date Time Temp Pulse Resp B/P (MAP) Pulse Ox O2 Delivery O2 Flow Rate FiO2 06/20/18 07:00 97.9 66 20 113/78 (90) 95 Room Air 97.9 Physical Exam: PHYSICAL EXAM GENERAL: Alert and oriented x 3, Turk[place] speaking male understands and talks in Citizen Of [place], in no acute distress, lying comfortably in bed and nontoxic appearing. HEENT: Normocephalic and atraumatic. Anicteric. No thrush. Oral mucosa is moist. NECK: Supple. No JVD. LUNGS: Clear bilaterally. No wheezing. HEART: S1 and S2. No gallops, murmurs or rubs. ABDOMEN: Soft and nontender. Mild tenderness in the mid quadrant. No rebound and no guarding. EXTREMITIES: No edema and no cyanosis. DERM: Warm, dry and no generalized rash. CENTRAL NERVOUS SYSTEM: Alert and oriented x 3. Grossly nonfocal. PSYCHIATRIC: Appropriate mood and affect. Medications: Inpatient Meds: Current Medications Medications (Trade) Dose Ordered Sig/[facility] Start Time Stop Time Status Last Admin Dose Admin Acetaminophen (Tylenol) 650 mg PRN Q6HRS PRN 06/18/18 15:45 06/18/18 20:39 650 MG Ciprofloxacin/ Dextrose 200 ml @ 200 mls/hr Q12HR 06/19/18 13:00 06/20/18 09:26 200 MLS/HR Docusate Sodium (Colace) 100 mg PRN DAILY PRN 06/18/18 15:45 Famotidine (Pepcid Vial) 20 mg QHS 06/18/18 21:00 06/19/18 20:56 20 MG Fentanyl Citrate (Fentanyl 2ml Vial) 50 mcg PRN Q2HR PRN 06/17/18 22:30 06/18/18 22:29 DC 06/18/18 00:30 50 MCG Heparin Sodium (Porcine) (Heparin Sodium) 5,000 unit Q8HRS 06/18/18 22:00 06/20/18 05:40 5,000 UNIT Info (CONTRAST GIVEN -- Rx MONITORING) 1 each PRN DAILY PRN 06/17/18 21:30 06/19/18 21:29 DC Iohexol (Omnipaque 300 Mg/ml) 75 ml 1X ONCE 06/17/18 22:00 06/17/18 22:01 DC 06/17/18 21:54 60 ML Ketorolac Tromethamine (Toradol 30mg Vial) 30 mg 1X ONCE 06/17/18 21:30 06/17/18 21:31 DC 06/17/18 21:46 30 MG Lactobacillus Rhamnosus (Culturelle) 1 cap BID 06/19/18 21:00 06/20/18 09:06 1 CAP Metronidazole 100 ml @ 100 mls/hr Q12HR 06/19/18 13:00 06/19/18 20:56 100 MLS/HR Morphine Sulfate (Morphine Sulfate) 2 mg PRN Q2HR PRN 06/18/18 15:45 Ondansetron HCl (Zofran) 4 mg PRN Q6HRS PRN 06/18/18 15:45 Piperacillin Sod/ Tazobactam Sod 3.375 gm/Sodium Chloride 50 ml @ 100 mls/hr Q6HRS 06/18/18 12:30 06/19/18 12:18 DC 06/19/18 12:00 100 MLS/HR Potassium Chloride (Klor-Con) 20 meq [id number] 06/21/18 08:00 Sodium Chloride 1,000 ml @ 125 mls/hr Q8H 06/18/18 15:45 06/20/18 05:37 125 MLS/HR Tramadol HCl (Ultram) 50 mg PRN Q6HRS PRN 06/18/18 15:45 Labs: Lab Laboratory Tests Test 06/20/18 09:20 White Blood Count 3.9 x10^3/uL (4.0-11.0) Red Blood Count 4.92 x10^6/uL (4.30-5.70) Hemoglobin 14.7 g/dL (13.0-17.5) Hematocrit 42.5 % (39.0-53.0) Mean Corpuscular Volume 86 fL (79-100) Mean Corpuscular Hemoglobin 30 pg (25-35) Mean Corpuscular Hemoglobin Concent 35 g/dL (31-37) Red Cell Distribution Width 14.4 % (11.5-14.5) Platelet Count 203 x10^3/uL (140-400) Neutrophils (%) (Auto) 49 % (31-73) Lymphocytes (%) (Auto) 32 % (24-48) Monocytes (%) (Auto) 18 % (0-9) Eosinophils (%) (Auto) 1 % (0-3) Basophils (%) (Auto) 1 % (0-3) Neutrophils # (Auto) 1.9 x10^3uL (1.8-7.7) Lymphocytes # (Auto) 1.2 x10^3/uL (1.0-4.8) Monocytes # (Auto) 0.7 x10^3/uL (0.0-1.1) Eosinophils # (Auto) 0.0 x10^3/uL (0.0-0.7) Basophils # (Auto) 0.0 x10^3/uL (0.0-0.2) Sodium Level 142 mmol/L (136-145) Potassium Level 3.0 mmol/L (3.5-5.1) Chloride Level 105 mmol/L (98-107) Carbon Dioxide Level 27 mmol/L (21-32) Anion Gap 10 (6-14) Blood Urea Nitrogen 8 mg/dL (8-26) Creatinine 0.8 mg/dL (0.7-1.3) Estimated GFR (Cockcroft-Gault) 107.6 BUN/Creatinine Ratio 10 (6-20) Glucose Level 109 mg/dL (70-99) Calcium Level 8.4 mg/dL (8.5-10.1) Total Bilirubin 0.4 mg/dL (0.2-1.0) Aspartate Amino Transf (AST/SGOT) 25 U/L (15-37) Alanine Aminotransferase (ALT/SGPT) 35 U/L (16-63) Alkaline Phosphatase 60 U/L (46-116) Total Protein 7.2 g/dL (6.4-8.2) Albumin 2.9 g/dL (3.4-5.0) Albumin/Globulin Ratio 0.7 (1.0-1.7) Micro flu screen neg c diff neg fob + hiv neg BC neg so far Objective: Assessment: 1. Fever, Systemic inflammatory response syndrome.improved ,source GI w/u neg so far, except for stool ob +, wbc +, could be viral gastroenteritis 2. Leukocytosis.could be reactive, now leucopenia 3. Lactic acidosis. resolved 4. Nausea, vomiting, abdominal pain likely gastroenteritis with CT abdomen and pelvis shows no acute findings.could be viral, parasitic or bacterial resolved 5.FOB positive 6. Hematuria Plan: Plan of Care Pt is insisting in going home today fu crypto antigen, ova and parasite fecal cultures DC cipro and flagyl f/u with pcp in 2 days,pt agrees d/w family at bedside supportive care D/W DEANN Thompson MD Jun 20, 2018 11:30
[2018-06-21] MEDS ORDERED: POTASSIUM CHLORIDE 20 MEQ TABLET.ER. PO SCH (08:00)
== END 2018-06-20 14:00 | disposition home or self-care (01) | DRG 392 ==
LOC: ER 20:13 → 5 NORTH 22:35 → 5 SOUTH 06-20 06:35
PROVIDERS: ADMIT Internal Medicine; ATTEND Internal Medicine
DX: A08.4 Viral intestinal infection, unspecified (principal); R65.10 Systemic inflammatory response syndrome (SIRS) of non-infectious origin without acute organ dysfunction; E87.2 Acidosis; Z82.49 Family history of ischemic heart disease and other diseases of the circulatory system; R31.9 Hematuria, unspecified; E87.6 Hypokalemia
CPT/HCPCS: 36415; 71046; 74177; 80048; 80053; 80307; 81001; 82274; 83605; 83690; 84145; 85007; 85025; 86703; 87040; 87045; 87177; 87205; 87328; 87493; 87804; 96361; 96365; 96375; J0744; J1644; J1885; J2405; J2543; J3010; J3490; J7030; Q9967; 99285-25; G0479